=== PATIENT | male | born 1935 | race Asian ===

== ENCOUNTER 2020-10-01 15:13 | Inpatient (IN) | payer MEDICARE, OTHER ==
[~2020-10-01] VITALS: Ht 167.6 cm; Wt 72.6 kg
--- NOTE | 2020-10-01 15:35 | Emergency Room Report ---
History of Present Illness General Chief Complaint: Dyspnea/Respdistress Source: Patient Present Illness HPI Patient is an 85-year-old male who presents for increased cough and difficulty with breathing. Prior history of COPD. Normally takes Combivent. Denies any fever. Intermittently productive cough. Denies any diarrhea. Increased shortness of breath at rest. Prior history of pneumonia. 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 Patient History Past Medical History: see triage record Reviewed Nursing Documentation: PMH: Agreed; PSxH: Agreed Nursing Documentation-PMH Hx COPD: Yes Review of Systems All Other Systems: negative except mentioned in HPI Physical Exam Vital Signs Date Time Temp Pulse Resp B/P (MAP) Pulse Ox O2 Delivery O2 Flow Rate FiO2 10/01/20 15:15 99.9 89 22 125/84 (98) 95 Room Air Sp02 EP Interpretation: reviewed, normal General Appearance: normal inspection, well appearing, no apparent distress, alert, GCS 15 Head: atraumatic ENT: normal ENT inspection, hearing grossly normal, normal voice Neck: normal inspection, full range of motion, supple, no bony tend Respiratory: normal inspection, no retraction, no wheezing, rhonchi Cardiovascular #1: regular rate, rhythm, no edema Gastrointestinal: normal inspection, normal bowel sounds, non tender, soft, no guarding, no hernia Genitourinary: no CVA tenderness Musculoskeletal: normal inspection, back normal, normal range of motion Neurologic: alert, motor strength/tone normal, oriented x3, responsive, speech normal, normal inspection Psychiatric: normal inspection, judgement/insight normal, mood/affect normal Medical Decision Making Diagnostic Impression: Primary Impression: 2019 novel coronavirus detected Additional Impressions: Pneumonia Chronic lung disease ER Course Patient presented for shortness of breath. Differential diagnosis include was not limited to pneumonia, bronchitis, coronavirus infection among others. Because of complexity of patient's case laboratory tests and imaging studies were ordered.Chest x-ray read by radiology showed extensive parenchymal volume loss and pleural thickening on the left with linear opacities most likely represent chronic pleuroparenchymal scarring although acute process is also possible. 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 Patient was started on supplemental oxygen. He was given IV antibiotics. Dr. Marv Yeboah was contacted for inpatient management. Labs Test 10/01/20 16:00 White Blood Count 5.3 K/UL (4.8-10.8) Red Blood Count 4.28 M/UL (4.70-6.10) Hemoglobin 13.4 G/DL (14.2-18.0) Hematocrit 37.8 % (42.0-52.0) Mean Corpuscular Volume 88 FL (80-99) Mean Corpuscular Hemoglobin 31.2 PG (27.0-31.0) Mean Corpuscular Hemoglobin Concent 35.4 G/DL (32.0-36.0) Red Cell Distribution Width 12.9 % (11.6-14.8) Platelet Count 171 K/UL (150-450) Mean Platelet Volume 7.1 FL (6.5-10.1) Neutrophils (%) (Auto) 68.1 % (45.0-75.0) Lymphocytes (%) (Auto) 12.7 % (20.0-45.0) Monocytes (%) (Auto) 17.1 % (1.0-10.0) Eosinophils (%) (Auto) 0.9 % (0.0-3.0) Basophils (%) (Auto) 1.2 % (0.0-2.0) Prothrombin Time 10.7 SEC (9.30-11.50) Prothromb Time International Ratio 1.0 (0.9-1.1) Activated Partial Thromboplast Time 32 SEC (23-33) D-Dimer 0.79 mg/L FEU (0.00-0.49) Sodium Level 136 MMOL/L (136-145) Potassium Level 4.0 MMOL/L (3.5-5.1) Chloride Level 99 MMOL/L (98-107) Carbon Dioxide Level 28 MMOL/L (21-32) Anion Gap 9 mmol/L (5-15) Blood Urea Nitrogen 29 mg/dL (7-18) Creatinine 1.3 MG/DL (0.55-1.30) Estimat Glomerular Filtration Rate 52.7 mL/min (>60) Glucose Level 122 MG/DL (74-106) Lactic Acid Level 1.00 mmol/L (0.4-2.0) Calcium Level 8.7 MG/DL (8.5-10.1) Ferritin 265 NG/ML (8-388) Total Bilirubin 0.9 MG/DL (0.2-1.0) Aspartate Amino Transf (AST/SGOT) 32 U/L (15-37) Alanine Aminotransferase (ALT/SGPT) 23 U/L (12-78) Alkaline Phosphatase 98 U/L (46-116) Lactate Dehydrogenase 210 U/L (81-234) Total Creatine Kinase 91 U/L (26-308) Creatine Kinase MB 0.7 NG/ML (0.0-3.6) Creatine Kinase MB Relative Index 0.7 Troponin I 0.017 ng/mL (0.000-0.056) C-Reactive Protein, Quantitative 2.3 mg/dL (0.00-0.90) Total Protein 8.2 G/DL (6.4-8.2) Albumin 3.2 G/DL (3.4-5.0) Globulin 5.0 g/dL Albumin/Globulin Ratio 0.6 (1.0-2.7) Lipase 387 U/L (73-393) EKG Diagnostic Results Rate: tachycardiac Rhythm: NSR ST Segments: no acute changes Last Vital Signs Date Time Temp Pulse Resp B/P (MAP) Pulse Ox O2 Delivery O2 Flow Rate FiO2 10/01/20 15:15 99.9 89 22 125/84 (98) 95 Room Air Status: improved Disposition: ADMITTED INPATIENT Condition: Stable Fabián Pickett MD Oct 01, 2020 15:35
[2020-10-01] MEDS ORDERED: Aspirin Baby 81mg ORAL ONE (15:45)
[2020-10-01] MEDS ORDERED: dexAMETHasone 10mg/ml Inj IV ONE (15:45)
--- NOTE | 2020-10-01 16:00 | NUR ---
ED Nurse Note:pt. came from home with c/o chest pain and SOB, VSS, ambulatory, blood and cultures covid swab sent to labs
[2020-10-01] MEDS ORDERED: cefTRIAXone 1 GM in NS 55 ML IVPB ONE (16:15)
[2020-10-01] MEDS ORDERED: Azithromycin 500 MG in NS 275 ML IV ONE (16:15)
--- NOTE | 2020-10-01 16:28 | Diagnostic Imaging Report ---
Indication: Shortness of breath Technique: One view of the chest Comparison: none Findings: There is extensive volume loss of the left lung, with retraction of the mediastinum to the left. There is considerable pleural thickening and within the residual aerated lung considerable large reticular opacities. There is also evidence of volume loss in the right lung apex with right apical pleural thickening and upward retraction of the pulmonary hilum. There is some lateral basilar pleural thickening on the right. The aerated right lung demonstrates mild interstitial prominence, is otherwise clear. Impression: Extensive parenchymal volume loss and pleural thickening on the left with linear opacities. Findings most likely represent extensive chronic pleural-parenchymal scarring, although superimposed acute process is also possible. Similar chronic appearing changes in the right upper lobe. Right lower lobe interstitial disease is probably chronic in nature as is right lateral basilar pleural thickening
[2020-10-01 16:29] LABS: BASOPHILS % (AUTO) 1.2 % (0.0-2.0); EOSINOPHILS % (AUTO) 0.9 % (0.0-3.0); HEMATOCRIT 37.8 % (42.0-52.0); HEMOGLOBIN 13.4 G/DL (14.2-18.0); LYMPHOCYTES % (AUTO) 12.7 % (20.0-45.0); MEAN CORPUSCULAR VOLUME 88 FL (80-99); MONOCYTES % (AUTO) 17.1 % (1.0-10.0); NEUTROPHILS % (AUTO) 68.1 % (45.0-75.0); PLATELET COUNT 171 K/UL (150-450); RED BLOOD COUNT 4.28 M/UL (4.70-6.10); RED CELL DISTRIBUTION WIDTH 12.9 % (11.6-14.8); WHITE BLOOD COUNT 5.3 K/UL (4.8-10.8)
[2020-10-01 16:48] VITALS: BP 125/84
[2020-10-01 17:07] LABS: CALCIUM 8.7 MG/DL (8.5-10.1); CREATININE 1.3 MG/DL (0.55-1.30)
[2020-10-01] MEDS ORDERED: METOPROLOL TART25 MG ORAL (17:12)
[2020-10-01] MEDS ORDERED: TIMOLOL MALEATE5 MG PO (17:12)
[2020-10-01] MEDS ORDERED: POTASSIUM CHLO20 ME1 ORAL (17:12)
[2020-10-01] MEDS ORDERED: SYNTHROID137 MCG ORAL (17:12)
[2020-10-01] MEDS ORDERED: MECLIZINE HCL12.5 MG ORAL (17:12)
--- NOTE | 2020-10-01 17:15 | NUR ---
ED Nurse Note: pt was transferred into bed 8, pt was placed on bed and gown; hooked to quality assurance monitor final. hand off received from christiane valero for plan of care. Pt is AOx4, calm and cooperative to care, speaks in full sentences, ambulatory with a steady gait but noted with weakness and cough; uses accessory muscle, satting at 100% on 2LPM via NC.
[2020-10-01 17:22] LABS: ALBUMIN 3.2 G/DL (3.4-5.0); ALBUMIN/GLOBULIN RATIO 0.6 (1.0-2.7); BILIRUBIN,TOTAL 0.9 MG/DL (0.2-1.0); CKMB 0.7 NG/ML (0.0-3.6)
--- NOTE | 2020-10-01 18:23 | NUR ---
ED Nurse Note: XAVIER TALAMANTES-DAUGHTER
[2020-10-01 18:32] LABS: APPEARANCE,URINE CLEAR; BILIRUBIN, URINE NEGATIVE (NEGATIVE); GLUCOSE, URINE (UA) NEGATIVE (NEGATIVE); KETONES,URINE NEGATIVE (NEGATIVE); LEUKOCYTE ESTERASE ,URINE 1+ (NEGATIVE); NITRITE,URINE NEGATIVE (NEGATIVE); PH,URINE 6 (4.5-8.0); PROTEIN,URINE 2+ (NEGATIVE); UROBILINOGEN,URINE NORMAL MG/DL (0.0-1.0)
[2020-10-01 18:54] LABS: COLOR,URINE YELLOW
--- NOTE | 2020-10-01 19:09 | NUR ---
ED Nurse Note: Hand off given to Mian Mazariegos RN
[2020-10-01 19:30] VITALS: BP 113/83
--- NOTE | 2020-10-01 19:30 | NUR ---
ED Nurse Note: received patient from mukul moctezuma rn. patient resting in bed with no acute distress. vitals stable to baseline. discussed plan of care with patient; aware of pending admission.
--- NOTE | 2020-10-01 19:53 | History & Physical ---
History and Physical History & Physicial 85-year-old male who presents for increased cough and difficulty with breathing. known COPD. Denies any fever. + productive cough. + shortness of breath. Prior history of pneumonia COVID+ PMH COPD glaucoma hypertension hypothryoid MEDS/ALLERGIES reviewed and reconciled SOCIAL HISTORY Retired; prior smoker PHYSICAL deferred due to COVID Laboratory Tests 10/01/20 16:00: White Blood Count 5.3, Red Blood Count 4.28L, Hemoglobin 13.4L, Hematocrit 37.8L , Mean Corpuscular Volume 88, Mean Corpuscular Hemoglobin 31.2H, Mean Corpuscular Hemoglobin Concent 35.4, Red Cell Distribution Width 12.9, Platelet Count 171, Mean Platelet Volume 7.1, Neutrophils (%) (Auto) 68.1, Lymphocytes (%) (Auto) 12.7L, Monocytes (%) (Auto) 17.1H, Eosinophils (%) (Auto) 0.9, Basophils (%) (Auto) 1.2, Prothrombin Time 10.7, Prothromb Time International Ratio 1.0, Activated Partial Thromboplast Time 32, D-Dimer 0.79H, Sodium Level 136, Potassium Level 4.0, Chloride Level 99, Carbon Dioxide Level 28, Anion Gap 9, Blood Urea Nitrogen 29H, Creatinine 1.3, Estimat Glomerular Filtration Rate 52.7, Glucose Level 122H, Lactic Acid Level 1.00, Calcium Level 8.7, Ferritin 265, Total Bilirubin 0.9, Aspartate Amino Transf (AST/SGOT) 32, Alanine Aminotransferase (ALT/SGPT) 23, Alkaline Phosphatase 98, Lactate Dehydrogenase 210, Total Creatine Kinase 91, Creatine Kinase MB 0.7, Creatine Kinase MB Relative Index 0.7, Troponin I 0.017, C-Reactive Protein, Quantitative 2.3H, Pro-B-Type Natriuretic Peptide [Pending], Total Protein 8.2, Albumin 3.2L, Globulin 5.0, Albumin/Globulin Ratio 0.6L, Lipase 387 10/01/20 17:00: Urine Color Yellow, Urine Appearance Clear, Urine pH 6, Urine Specific [place] 1.010, Urine Protein 2+H, Urine Glucose (UA) Negative, Urine Ketones Negative, Urine Blood 1+H, Urine Nitrite Negative, Urine Bilirubin Negative, Urine Urobilinogen Normal, Urine Leukocyte Esterase 1+H, Urine RBC [Pending], Urine WBC [Pending], Urine Squamous Epithelial Cells [Pending], Urine Bacteria [Pending] IMPRESSION chronic lung changes COVID pneumonia COPD hypoxemia hypothyroid hypertension PLAN respiratory care ID to see oxygen respiratory treatment DVT prophylaxis home meds monitor for intubation impression, plan, and exam edited and reviewed in detail care discussed with Marv Holguin MD Oct 01, 2020 19:53
[2020-10-01 22:00] VITALS: BP 108/73
[2020-10-02] VITALS: BP 120/77
[2020-10-02 04:00] VITALS: BP 126/80
--- NOTE | 2020-10-02 04:00 | NUR ---
ED Nurse Note: am care provided. patient ao4 with no acute distress. vitals stable to baseline. am labs drawn; sent down to lab.
[2020-10-02 05:38] LABS: HEMATOCRIT 35.4 % (42.0-52.0); HEMOGLOBIN 12.5 G/DL (14.2-18.0); MEAN CORPUSCULAR VOLUME 90 FL (80-99); PLATELET COUNT 143 K/UL (150-450); RED BLOOD COUNT 3.94 M/UL (4.70-6.10); RED CELL DISTRIBUTION WIDTH 12.3 % (11.6-14.8)
[2020-10-02 05:49] LABS: WHITE BLOOD COUNT 1.3 K/UL (4.8-10.8)
[2020-10-02 06:02] VITALS: BP 122/75
[2020-10-02 06:05] LABS: ANION GAP 4 mmol/L (5-15); BLOOD UREA NITROGEN 22 mg/dL (7-18); CALCIUM 8.2 MG/DL (8.5-10.1); CARBON DIOXIDE 30 MMOL/L (21-32); CHLORIDE 103 MMOL/L (98-107); POTASSIUM 4.7 MMOL/L (3.5-5.1); SODIUM 137 MMOL/L (136-145)
--- NOTE | 2020-10-02 07:28 | NUR ---
ED Nurse Note: Report received from Mina Mazariegos RN. Pt is resting in bed with eyes closed. No signs of distress or pain noted. Respirations even and unlabored on 2 L NC. Vitals stable as documented. A+Ox4.
--- NOTE | 2020-10-02 07:34 | NUR ---
ED Nurse Note: report given to JATINDER gonzalez on 4E
--- NOTE | 2020-10-02 08:00 | NUR ---
ED Nurse Note: pt transferred safely to 4E with all belongings.
--- NOTE | 2020-10-02 08:00 | NUR ---
NURSE NOTES: Patient arrived on unit. Stable. Denies pain. SOB noted, patient is on 2L oxygen via nc. Patient oriented to room, call light and unit. Patient instructed to use call light for assistance, verbalized understanding. Patient is in bed in locked and lowest position with call light within reach. All safety measures provided. Will continue to monitor.
[2020-10-02] MEDS: dexAMETHasone 10mg/ml Inj IV SCH (08:28)
[2020-10-02] MEDS ORDERED: Enoxaparin 60mg Inj SUBQ SCH (09:00)
[2020-10-02] MEDS: Enoxaparin 40mg Inj SUBQ SCH (09:00)
--- NOTE | 2020-10-02 09:24 | General Progress Note ---
Subjective ROS Limited/Unobtainable: No Constitutional: Reports: malaise, weakness HEENT: Reports: no symptoms Cardiovascular: Reports: no symptoms Respiratory: Reports: cough, shortness of breath Gastrointestinal/Abdominal: Reports: no symptoms Genitourinary: Reports: no symptoms Neurologic/Psychiatric: Reports: no symptoms Endocrine: Reports: no symptoms Hematologic/Lymphatic: Reports: no symptoms Allergies: Coded Allergies: No Known Allergies (Unverified , 10/01/20) All Systems: reviewed and negative except above Subjective 85 uo male. poor historian. present with 1 week sob. +cough. +fevers. Covid postive in er. +chronic changes on xray. on low flow o2. PMH: Htn chf copd PSHx: none Meds: reviewed All: nkda FHx: none Shx: prior smoker Objective Last 24 Hour Vital Signs Date Time Temp Pulse Resp B/P (MAP) Pulse Ox O2 Delivery O2 Flow Rate FiO2 10/02/20 06:02 99.9 100 23 122/75 98 Room Air 10/02/20 04:00 99.9 100 23 126/80 98 Room Air 10/02/20 00:00 99.9 100 24 120/77 100 Room Air 10/01/20 22:00 99.9 98 23 108/73 100 Room Air 10/01/20 19:30 99.9 70 20 113/83 100 Room Air 10/01/20 16:48 89 22 Room Air 10/01/20 16:48 99.9 88 22 125/84 95 Room Air 10/01/20 15:15 99.9 89 22 125/84 (98) 95 Room Air Intake and Output 10/01/20 10/02/20 19:00 07:00 Intake Total 120 ml Balance 120 ml Intake Oral 120 ml Laboratory Tests 10/01/20 16:00: White Blood Count 5.3, Red Blood Count 4.28L, Hemoglobin 13.4L, Hematocrit 37.8L , Mean Corpuscular Volume 88, Mean Corpuscular Hemoglobin 31.2H, Mean Corpuscular Hemoglobin Concent 35.4, Red Cell Distribution Width 12.9, Platelet Count 171, Mean Platelet Volume 7.1, Neutrophils (%) (Auto) 68.1, Lymphocytes (%) (Auto) 12.7L, Monocytes (%) (Auto) 17.1H, Eosinophils (%) (Auto) 0.9, Basophils (%) (Auto) 1.2, Prothrombin Time 10.7, Prothromb Time International Ratio 1.0, Activated Partial Thromboplast Time 32, D-Dimer 0.79H, Sodium Level 136, Potassium Level 4.0, Chloride Level 99, Carbon Dioxide Level 28, Anion Gap 9, Blood Urea Nitrogen 29H, Creatinine 1.3, Estimat Glomerular Filtration Rate 52.7, Glucose Level 122H, Lactic Acid Level 1.00, Calcium Level 8.7, Ferritin 265, Total Bilirubin 0.9, Aspartate Amino Transf (AST/SGOT) 32, Alanine Aminotransferase (ALT/SGPT) 23, Alkaline Phosphatase 98, Lactate Dehydrogenase 210, Total Creatine Kinase 91, Creatine Kinase MB 0.7, Creatine Kinase MB Relative Index 0.7, Troponin I 0.017, C-Reactive Protein, Quantitative 2.3H, Pro-B-Type Natriuretic Peptide 5537H, Total Protein 8.2, Albumin 3.2L, Globulin 5.0, Albumin/Globulin Ratio 0.6L, Lipase 387 10/01/20 17:00: Urine Color Yellow, Urine Appearance Clear, Urine pH 6, Urine Specific [place] 1.010, Urine Protein 2+H, Urine Glucose (UA) Negative, Urine Ketones Negative, Urine Blood 1+H, Urine Nitrite Negative, Urine Bilirubin Negative, Urine Urobilinogen Normal, Urine Leukocyte Esterase 1+H, Urine RBC 2-4H, Urine WBC 5- 10H, Urine Squamous Epithelial Cells None, Urine Bacteria Few 10/02/20 05:00: White Blood Count 1.3#*L, Red Blood Count 3.94L, Hemoglobin 12.5L, Hematocrit 35.4L, Mean Corpuscular Volume 90, Mean Corpuscular Hemoglobin 31.7H, Mean Corpuscular Hemoglobin Concent 35.3, Red Cell Distribution Width 12.3, Platelet Count 143L, Mean Platelet Volume 7.8, Neutrophils (%) (Auto) , Lymphocytes (%) (Auto) , Monocytes (%) (Auto) , Eosinophils (%) (Auto) , Basophils (%) (Auto) , Sodium Level 137, Potassium Level 4.7, Chloride Level 103, Carbon Dioxide Level 30, Anion Gap 4L, Blood Urea Nitrogen 22H, Creatinine 1.0, Estimat Glomerular Filtration Rate > 60, Glucose Level 139H, Calcium Level 8.2L, Differential Total Cells Counted 100, Neutrophils % (Manual) 63, Lymphocytes % (Manual) 23, Monocytes % (Manual) 14H, Eosinophils % (Manual) 0, Basophils % (Manual) 0, Band Neutrophils 0, Platelet Estimate DecreasedL, Platelet Morphology Normal, Red Blood Cell Morphology Normal Height (Feet): 5 Height (Inches): 6.00 Weight (Pounds): 160 General Appearance: WD/WN, alert, confused EENT: normal ENT inspection Neck: normal alignment Cardiovascular: normal peripheral pulses, normal rate, regular rhythm Respiratory/Chest: chest wall non-tender, lungs clear, normal breath sounds, no respiratory distress Abdomen: normal bowel sounds, non tender, soft, no organomegaly, no mass Edema: no edema noted Leg (L), no edema noted Leg (R), no edema noted Pedal (L), no edema noted Pedal (R) 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
[2020-10-02] MEDS ORDERED: FINASTERIDE5 MG ORAL (10:08)
[2020-10-02] MEDS ORDERED: FLOMAX0.4 MG ORAL (10:08)
[2020-10-02] MEDS ORDERED: FUROSEMIDE40 MG ORAL (10:08)
[2020-10-02] MEDS ORDERED: BENAZEPRIL HCL40 MG ORAL (10:43)
[2020-10-02] MEDS ORDERED: COMBIVENT RESPIM4 GM IH (10:44)
[2020-10-02 12:00] VITALS: BP 150/91
--- NOTE | 2020-10-02 12:34 | Pulmonology Progress Note ---
Subjective ROS Limited/Unobtainable: No Allergies: Coded Allergies: No Known Allergies (Unverified , 10/01/20) All Systems: reviewed and negative except above Subjective care noted confused on oxygen no distress Objective Last 24 Hour Vital Signs Date Time Temp Pulse Resp B/P (MAP) Pulse Ox O2 Delivery O2 Flow Rate FiO2 10/02/20 09:00 Nasal Cannula 2.0 10/02/20 08:17 Nasal Cannula 2.0 10/02/20 08:00 99.6 92 20 129/82 99 Nasal Cannula 1.0 10/02/20 06:02 99.9 100 23 122/75 98 Room Air 10/02/20 04:00 99.9 100 23 126/80 98 Room Air 10/02/20 00:00 99.9 100 24 120/77 100 Room Air 10/01/20 22:00 99.9 98 23 108/73 100 Room Air 10/01/20 19:30 99.9 70 20 113/83 100 Room Air 10/01/20 16:48 89 22 Room Air 10/01/20 16:48 99.9 88 22 125/84 95 Room Air 10/01/20 15:15 99.9 89 22 125/84 (98) 95 Room Air Intake and Output 10/01/20 10/02/20 19:00 07:00 Intake Total 120 ml Balance 120 ml Intake Oral 120 ml Objective deferred due to COVID Microbiology Date/Time Source Procedure Growth Status 10/01/20 16:00 Nasopharynx SARS-CoV-2 RdRp Gene Assay - Final Complete Laboratory Tests 10/01/20 16:00: White Blood Count 5.3, Red Blood Count 4.28L, Hemoglobin 13.4L, Hematocrit 37.8L , Mean Corpuscular Volume 88, Mean Corpuscular Hemoglobin 31.2H, Mean Corpuscular Hemoglobin Concent 35.4, Red Cell Distribution Width 12.9, Platelet Count 171, Mean Platelet Volume 7.1, Neutrophils (%) (Auto) 68.1, Lymphocytes (%) (Auto) 12.7L, Monocytes (%) (Auto) 17.1H, Eosinophils (%) (Auto) 0.9, Basophils (%) (Auto) 1.2, Prothrombin Time 10.7, Prothromb Time International Ratio 1.0, Activated Partial Thromboplast Time 32, D-Dimer 0.79H, Sodium Level 136, Potassium Level 4.0, Chloride Level 99, Carbon Dioxide Level 28, Anion Gap 9, Blood Urea Nitrogen 29H, Creatinine 1.3, Estimat Glomerular Filtration Rate 52.7, Glucose Level 122H, Lactic Acid Level 1.00, Calcium Level 8.7, Ferritin 265, Total Bilirubin 0.9, Aspartate Amino Transf (AST/SGOT) 32, Alanine Aminotransferase (ALT/SGPT) 23, Alkaline Phosphatase 98, Lactate Dehydrogenase 210, Total Creatine Kinase 91, Creatine Kinase MB 0.7, Creatine Kinase MB Relative Index 0.7, Troponin I 0.017, C-Reactive Protein, Quantitative 2.3H, Pro-B-Type Natriuretic Peptide 5537H, Total Protein 8.2, Albumin 3.2L, Globulin 5.0, Albumin/Globulin Ratio 0.6L, Lipase 387 10/01/20 17:00: Urine Color Yellow, Urine Appearance Clear, Urine pH 6, Urine Specific [place] 1.010, Urine Protein 2+H, Urine Glucose (UA) Negative, Urine Ketones Negative, Urine Blood 1+H, Urine Nitrite Negative, Urine Bilirubin Negative, Urine Urobilinogen Normal, Urine Leukocyte Esterase 1+H, Urine RBC 2-4H, Urine WBC 5- 10H, Urine Squamous Epithelial Cells None, Urine Bacteria Few 10/02/20 05:00: White Blood Count 1.3#*L, Red Blood Count 3.94L, Hemoglobin 12.5L, Hematocrit 35.4L, Mean Corpuscular Volume 90, Mean Corpuscular Hemoglobin 31.7H, Mean Corpuscular Hemoglobin Concent 35.3, Red Cell Distribution Width 12.3, Platelet Count 143L, Mean Platelet Volume 7.8, Neutrophils (%) (Auto) , Lymphocytes (%) (Auto) , Monocytes (%) (Auto) , Eosinophils (%) (Auto) , Basophils (%) (Auto) , Sodium Level 137, Potassium Level 4.7, Chloride Level 103, Carbon Dioxide Level 30, Anion Gap 4L, Blood Urea Nitrogen 22H, Creatinine 1.0, Estimat Glomerular Filtration Rate > 60, Glucose Level 139H, Calcium Level 8.2L, Differential Total Cells Counted 100, Neutrophils % (Manual) 63, Lymphocytes % (Manual) 23, Monocytes % (Manual) 14H, Eosinophils % (Manual) 0, Basophils % (Manual) 0, Band Neutrophils 0, Platelet Estimate DecreasedL, Platelet Morphology Normal, Red Blood Cell Morphology Normal Current Medications Medications (Trade) Dose Ordered Sig/Nikia Route PRN Reason Start Time Stop Time Status Last Admin Dose Admin Acetaminophen (Tylenol) 650 mg Q4H PRN ORAL fever 10/01/20 20:00 10/31/20 19:59 Albuterol/ Ipratropium (Combivent Respimat) 1 puff Q6H PRN INH Shortness of Breath 10/02/20 12:30 11/01/20 12:29 Benazepril HCl (Lotensin) 40 mg DAILY ORAL 10/03/20 09:00 11/02/20 08:59 Dexamethasone Sodium Phosphate (Decadron 10mg/ ml Inj) 6 mg DAILY IV 10/02/20 09:00 10/10/20 09:01 10/02/20 08:28 Enoxaparin Sodium (Lovenox) 40 mg DAILY SUBQ 10/02/20 09:00 12/31/20 08:59 Finasteride (Proscar) 5 mg DAILY ORAL 10/03/20 09:00 01/01/21 08:59 Furosemide (Lasix) 40 mg DAILY ORAL 10/03/20 09:00 11/02/20 08:59 Pantoprazole (Protonix) 40 mg DAILY ORAL 10/02/20 09:00 11/01/20 08:59 10/02/20 08:28 Sodium Chloride 1,000 ml @ 100 mls/hr Q10H IV 10/01/20 20:00 10/31/20 19:59 10/02/20 05:49 Assessment/Plan Assessment/Plan IMPRESSION chronic lung changes COVID pneumonia COPD hypoxemia hypothyroid hypertension PLAN respiratory care ID follow up oxygen respiratory treatment DVT prophylaxis home meds PT monitor imaging and consider CT impression, plan, and exam edited and reviewed in detail care discussed with Marv Holguin MD Oct 02, 2020 12:34
[2020-10-02] MEDS: Azithromycin 250mg tab ORAL SCH (13:37)
[2020-10-02] MEDS ORDERED: cefTRIAXone 1 GM in NS 55 ML IVPB SCH (14:00)
[2020-10-02 16:00] VITALS: BP 115/73
--- NOTE | 2020-10-02 19:19 | NUR ---
NURSE HAND-OFF: Important Events on Shift:admission Patient Status: stable Diet: reg Pending Orders: n/a Pending Results/Labs:n/a Pending MD notification:n/a Latest Vital Signs: Temperature 96.9 , Pulse 75 , B/P 115 /73 , Respiratory Rate 18 , O2 SAT 93 , Nasal Cannula, O2 Flow Rate 14.0 . Vital Sign Comment: n/a Latest Meneses Fall Score: 35 Fall Risk: Medium Risk Safety Measures: Call light Within Reach, Bed Alarm , Side Rails Side Rails x2, Bed position Low and Locked. Fall Precautions: Patient Fall Education Report given to Josefa RN.
--- NOTE | 2020-10-02 19:30 | NUR ---
NURSE NOTES: RECEIVED PATIENT FROM JATINDER OVALLE. PATIENT IS AWAKE, AAOX4, ON NC 2L, NO ACUTE DISTRESS NOTED. PIV ON LEFT ARM INTACT AND PATENT, RUNNING 1/2 NS AT 100ML/HR. VSS, AFEBRILE. BED IS LOCKED AND LOW, BED ALARMS ACTIVE, SIDE RAILS UPX2 AND CALL LIGHT IS WITHIN REACH. WILL CONTINUE TO MONITOR.
--- NOTE | 2020-10-02 19:45 | Consultation ---
DATE OF CONSULTATION: 10/02/2020 INFECTIOUS DISEASE CONSULTATION This consult is for coverage of Dr. Mitchell. CONSULTING PHYSICIAN: Gaetano Marina MD PRIMARY ATTENDING: Marv Yeboah MD REASON FOR CONSULTATION: COVID-19 disease. HISTORY OF PRESENT ILLNESS: This is an 85-year-old male admitted yesterday from home complaining of cough and shortness of breath. Patient has a history of COPD, was found to have positive test for COVID-19. PAST MEDICAL HISTORY: Hypothyroidism, hypertension, COPD. ALLERGIES: No known drug allergies. MEDICATIONS: Lasix, Proscar, benazepril, Combivent inhaler, albuterol-ipratropium inhaler, Lovenox, Protonix, dexamethasone. Got Zithromax and Rocephin in the ER. SOCIAL HISTORY: Has history of smoking. . REVIEW OF SYSTEMS: As history of present illness. Denies fever, chills. Has productive cough and shortness of breath. Seems to be hard of hearing. PHYSICAL EXAMINATION: VITAL SIGNS: Temperature 99.6, pulse 92, blood pressure 129/82. GENERAL APPEARANCE: Seems to have normal weight. HEAD AND NECK: [place] conjunctivae. HEART: Normal rate. LUNGS: Getting oxygen by nasal cannula 2 L. Seems clear. ABDOMEN: Soft, nontender. EXTREMITIES: No edema. NEUROLOGIC: He is awake, alert, responsive. LABORATORY AND DIAGNOSTIC DATA: Sodium 137, potassium 4.7, chloride 103, bicarb 30, BUN 22, creatinine 1, glucose 139. WBC 1.3, hemoglobin within normal limit, hematocrit 35.4, platelets are 143. COVID test was positive. Chest x-ray showed extensive volume loss, likely extensive scarring. IMPRESSION: COVID-19 disease. Patient is mildly hypoxemic. Has also COPD and evidence of lung scarring. Has leukopenia and lymphopenia, hypertension, hypothyroidism. RECOMMENDATION: Continue dexamethasone. Continue ceftriaxone and Zithromax. If patient's condition becomes worse, we will start on remdesivir. At the end of my exam, I thank Dr. Yeboah for involving me in the care of this patient. Gaetano Marina M.D. DR: ELTON JOB#: [id number] CC: MARQUES
[2020-10-02 20:00] VITALS: BP 135/73
[2020-10-03 04:00] VITALS: BP 114/68
--- NOTE | 2020-10-03 06:59 | NUR ---
NURSE HAND-OFF: Important Events on Shift: No acute events. Stable Patient Status: Stable Diet: Regular Pending Orders: N/A Pending Results/Labs:N/ Pending MD notification:N/A Latest Vital Signs: Temperature 96.9 , Pulse 91 , B/P 114 /68 , Respiratory Rate 20 , O2 SAT 95 , Nasal Cannula, O2 Flow Rate 2.0 . Vital Sign Comment: Stable Latest Meneses Fall Score: 35 Fall Risk: Medium Risk Safety Measures: Call light Within Reach, Bed Alarm , Side Rails Side Rails x2, Bed position Low and Locked. Fall Precautions: Patient Fall Education
--- NOTE | 2020-10-03 07:29 | NUR ---
HAND-OFF: Report given to Radhika Garcia RN.
--- NOTE | 2020-10-03 07:45 | NUR ---
NURSE NOTES: Pt awake in bed, alert and oriented. On NC 2L, breathing even and unlabored, no c/o SOB, afebrile, denied any pain at this time. IV on left FA intact and patent running IVF as ordered. Pt in low position and locked. Call light within reach. Will continue monitor.
[2020-10-03 08:00] VITALS: BP 113/78
[2020-10-03] MEDS: Furosemide 40mg tab ORAL SCH (08:30)
[2020-10-03] MEDS: Azithromycin 250mg tab ORAL SCH (08:30)
[2020-10-03] MEDS: dexAMETHasone 10mg/ml Inj IV SCH (08:30)
[2020-10-03] MEDS: Enoxaparin 40mg Inj SUBQ SCH (08:32)
--- NOTE | 2020-10-03 11:19 | Pulmonology Progress Note ---
Subjective ROS Limited/Unobtainable: No Allergies: Coded Allergies: No Known Allergies (Unverified , 10/01/20) All Systems: reviewed and negative except above Subjective care noted confused on oxygen no distress as prior Objective Last 24 Hour Vital Signs Date Time Temp Pulse Resp B/P (MAP) Pulse Ox O2 Delivery O2 Flow Rate FiO2 10/03/20 09:00 Nasal Cannula 2.0 10/03/20 08:29 113/78 10/03/20 08:00 97.7 77 19 113/78 (90) 96 10/03/20 04:00 96.9 91 20 114/68 (83) 95 10/02/20 21:00 Nasal Cannula 2.0 10/02/20 20:00 97.5 82 21 135/73 (93) 98 10/02/20 16:30 93 Venturi Mask 14.0 55 10/02/20 16:00 96.9 75 18 115/73 (87) 96 10/02/20 12:00 98.0 90 18 150/91 (110) 100 Intake and Output 10/02/20 10/03/20 19:00 07:00 Intake Total 100 ml 700 ml Balance 100 ml 700 ml IV Total 100 ml 700 ml Objective deferred due to COVID Microbiology Date/Time Source Procedure Growth Status 10/01/20 16:00 Nasopharynx SARS-CoV-2 RdRp Gene Assay - Final Complete Current Medications Medications (Trade) Dose Ordered Sig/Nikia Route PRN Reason Start Time Stop Time Status Last Admin Dose Admin Acetaminophen (Tylenol) 650 mg Q4H PRN ORAL fever 10/01/20 20:00 10/31/20 19:59 Albuterol/ Ipratropium (Combivent Respimat) 1 puff Q6H PRN INH Shortness of Breath 10/02/20 12:30 11/01/20 12:29 Azithromycin (Zithromax) 250 mg DAILY ORAL 10/02/20 14:00 10/09/20 13:59 10/03/20 08:30 Benazepril HCl (Lotensin) 40 mg DAILY ORAL 10/03/20 09:00 11/02/20 08:59 10/03/20 08:29 Ceftriaxone Sodium 1 gm/ Sodium Chloride 55 ml @ 110 mls/hr Q24H IVPB 10/02/20 14:00 10/09/20 13:59 10/02/20 13:38 Dexamethasone Sodium Phosphate (Decadron 10mg/ ml Inj) 6 mg DAILY IV 10/02/20 09:00 10/10/20 09:01 10/03/20 08:30 Enoxaparin Sodium (Lovenox) 40 mg DAILY SUBQ 10/02/20 09:00 12/31/20 08:59 Finasteride (Proscar) 5 mg DAILY ORAL 10/03/20 09:00 01/01/21 08:59 10/03/20 08:30 Furosemide (Lasix) 40 mg DAILY ORAL 10/03/20 09:00 11/02/20 08:59 10/03/20 08:30 Pantoprazole (Protonix) 40 mg DAILY ORAL 10/02/20 09:00 11/01/20 08:59 10/03/20 08:29 Sodium Chloride 1,000 ml @ 100 mls/hr Q10H IV 10/01/20 20:00 10/31/20 19:59 10/03/20 02:40 Assessment/Plan Assessment/Plan IMPRESSION chronic lung changes COVID pneumonia COPD hypoxemia hypothyroid hypertension PLAN respiratory care ID follow up oxygen respiratory treatment DVT prophylaxis home meds PT monitor imaging and consider CT impression, plan, and exam edited and reviewed in detail care discussed with Marv Holguin MD Oct 03, 2020 11:19
--- NOTE | 2020-10-03 11:44 | Infectious Diseases Prog Note ---
Assessment/Plan Assessment/Plan antibiotics : ceftriaxone, azithromycin A 1. COVID 19 pneumonia on 2 liters O2, 96 % saturation 2. hypertension 3. COPD 4. hypothyroidism P 1. continue decadron day 2 2. d/c ceftriaxone, azithromycin 3. ivermectin 1 dose 4. continue isolation Subjective ROS Limited/Unobtainable: Yes Allergies: Coded Allergies: No Known Allergies (Unverified , 10/01/20) Objective Last 24 Hour Vital Signs Date Time Temp Pulse Resp B/P (MAP) Pulse Ox O2 Delivery O2 Flow Rate FiO2 10/03/20 09:00 Nasal Cannula 2.0 10/03/20 08:29 113/78 10/03/20 08:00 97.7 77 19 113/78 (90) 96 10/03/20 04:00 96.9 91 20 114/68 (83) 95 10/02/20 21:00 Nasal Cannula 2.0 10/02/20 20:00 97.5 82 21 135/73 (93) 98 10/02/20 16:30 93 Venturi Mask 14.0 55 10/02/20 16:00 96.9 75 18 115/73 (87) 96 10/02/20 12:00 98.0 90 18 150/91 (110) 100 Height (Feet): 5 Height (Inches): 6.00 Weight (Pounds): 160 Microbiology Date/Time Source Procedure Growth Status 10/01/20 16:00 Nasopharynx SARS-CoV-2 RdRp Gene Assay - Final Complete Current Medications Medications (Trade) Dose Ordered Sig/Nikia Route PRN Reason Start Time Stop Time Status Last Admin Dose Admin Acetaminophen (Tylenol) 650 mg Q4H PRN ORAL fever 10/01/20 20:00 10/31/20 19:59 Albuterol/ Ipratropium (Combivent Respimat) 1 puff Q6H PRN INH Shortness of Breath 10/02/20 12:30 11/01/20 12:29 Azithromycin (Zithromax) 250 mg DAILY ORAL 10/02/20 14:00 10/09/20 13:59 10/03/20 08:30 Benazepril HCl (Lotensin) 40 mg DAILY ORAL 10/03/20 09:00 11/02/20 08:59 10/03/20 08:29 Ceftriaxone Sodium 1 gm/ Sodium Chloride 55 ml @ 110 mls/hr Q24H IVPB 10/02/20 14:00 10/09/20 13:59 10/02/20 13:38 Dexamethasone Sodium Phosphate (Decadron 10mg/ ml Inj) 6 mg DAILY IV 10/02/20 09:00 10/10/20 09:01 10/03/20 08:30 Enoxaparin Sodium (Lovenox) 40 mg DAILY SUBQ 10/02/20 09:00 12/31/20 08:59 Finasteride (Proscar) 5 mg DAILY ORAL 10/03/20 09:00 01/01/21 08:59 10/03/20 08:30 Furosemide (Lasix) 40 mg DAILY ORAL 10/03/20 09:00 11/02/20 08:59 10/03/20 08:30 Pantoprazole (Protonix) 40 mg DAILY ORAL 10/02/20 09:00 11/01/20 08:59 10/03/20 08:29 Sodium Chloride 1,000 ml @ 100 mls/hr Q10H IV 10/01/20 20:00 10/31/20 19:59 10/03/20 02:40 Nuzhat Mitchell MD Oct 03, 2020 11:44
[2020-10-03 12:00] VITALS: BP 128/63
[2020-10-03 16:00] VITALS: BP 121/70
--- NOTE | 2020-10-03 17:23 | NUR ---
CASE MANAGEMENT:INITIAL REVIEW 10/02/20 85 YR OLD MALE FROM HOME CC;DYSPNEA. RESPIRATORY DISTRESS. SI;COPD. COVID POSITIVE. 99.9 98 23 125/84 95% ON RA BUN 29 BG 122 CRP 2.3 BNP 5537 ALB 3.2 D-DIMER 0.79 UA+ PROTEIN, BLOOD, LEUKOCYTE ESTERASE, RBC, WBC COVID RAPID ~ POSITIVE CXR ~ Extensive parenchymal volume loss and pleural thickening on the left with linear opacities. Findings most likely represent extensive chronic pleural-parenchymal scarring, although superimposed acute process is also possible. Similar chronic appearing changes in the right upper lobe. Right lower lobe interstitial disease is probably chronic in nature as is right lateral basilar pleural thickening IS;DECADRON IV ASA PO ROCEPHIN IV ZITHROMAX IV IVF NS BOLUS ADMITTED TO MED SURG MED SURG STATUS DCP;FROM HOME CASE MANAGEMENT:REVIEW 10/03/20 SI;COVID PNA. COPD. 96.9 91 21 128/63 95% 2L NC IS;IVERMECTIN PO ONCE LASIX OP QD ZITHROMAX PO QD ROCEPHIN IV Q24 PROTONIX PO QD DECADRON IV QD IVF NS @ 100 ML/HR MED SURG STATUS DCP;FROM HOME
--- NOTE | 2020-10-03 17:25 | General Progress Note ---
Subjective ROS Limited/Unobtainable: No Constitutional: Reports: malaise, weakness HEENT: Reports: no symptoms Cardiovascular: Reports: no symptoms Respiratory: Reports: cough, shortness of breath Gastrointestinal/Abdominal: Reports: no symptoms Genitourinary: Reports: no symptoms Neurologic/Psychiatric: Reports: anxiety Endocrine: Reports: no symptoms Hematologic/Lymphatic: Reports: no symptoms Allergies: Coded Allergies: No Known Allergies (Unverified , 10/01/20) All Systems: reviewed and negative except above Subjective no events. no new complaints. stable sob. no fevers. on 2L. Objective Last 24 Hour Vital Signs Date Time Temp Pulse Resp B/P (MAP) Pulse Ox O2 Delivery O2 Flow Rate FiO2 10/03/20 16:00 97.3 76 21 121/70 (87) 96 10/03/20 12:00 97.7 90 21 128/63 (84) 99 10/03/20 09:00 Nasal Cannula 2.0 10/03/20 08:29 113/78 10/03/20 08:00 97.7 77 19 113/78 (90) 96 10/03/20 04:00 96.9 91 20 114/68 (83) 95 10/02/20 21:00 Nasal Cannula 2.0 10/02/20 20:00 97.5 82 21 135/73 (93) 98 Intake and Output 10/02/20 10/03/20 19:00 07:00 Intake Total 100 ml 700 ml Balance 100 ml 700 ml IV Total 100 ml 700 ml Height (Feet): 5 Height (Inches): 6.00 Weight (Pounds): 160 General Appearance: WD/WN, alert Neck: supple Cardiovascular: regular rhythm Respiratory/Chest: lungs clear, normal breath sounds Abdomen: normal bowel sounds, non tender, soft, no organomegaly Edema: no edema noted Pedal (L), no edema noted Pedal (R) 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
--- NOTE | 2020-10-03 19:08 | NUR ---
NURSE HAND-OFF: Important Events on Shift:[No SOB, saturation well on RA] Patient Status: [stable] Diet: [reg] Pending Orders: [] Pending Results/Labs:[] Pending MD notification:[] Latest Vital Signs: Temperature 97.3 , Pulse 76 , B/P 121 /70 , Respiratory Rate 21 , O2 SAT 96 , Nasal Cannula, O2 Flow Rate 2.0 . Vital Sign Comment: [stable] Latest Meneses Fall Score: 35 Fall Risk: Medium Risk Safety Measures: Call light Within Reach, Bed Alarm , Side Rails Side Rails x2, Bed position Low and Locked. Fall Precautions: Patient Fall Education Report given to [Josefa,RN].
[2020-10-03 20:00] VITALS: BP 110/71
[2020-10-04] VITALS: BP 116/68
[2020-10-04 04:00] VITALS: BP 108/71
--- NOTE | 2020-10-04 07:38 | NUR ---
HAND-OFF: Report given to JATINDER Fernandez.
--- NOTE | 2020-10-04 07:55 | NUR ---
NURSE NOTES: Received report from Josefa RN. Rounding done. Pt asleep with NC 2L/min. No SOB noted. Lt FA IV is in placed. Bed in lowest position, call light within reach. Will continue to monitor.
[2020-10-04 08:00] VITALS: BP 100/74
[2020-10-04] MEDS: Enoxaparin 40mg Inj SUBQ SCH (09:00)
[2020-10-04] MEDS: Furosemide 40mg tab ORAL SCH (09:15)
[2020-10-04] MEDS: dexAMETHasone 10mg/ml Inj IV SCH (09:24)
--- NOTE | 2020-10-04 10:18 | General Progress Note ---
Subjective ROS Limited/Unobtainable: No Constitutional: Reports: malaise, weakness HEENT: Reports: no symptoms Cardiovascular: Reports: no symptoms Respiratory: Reports: cough, shortness of breath Gastrointestinal/Abdominal: Reports: no symptoms Genitourinary: Reports: no symptoms Neurologic/Psychiatric: Reports: no symptoms Endocrine: Reports: no symptoms Hematologic/Lymphatic: Reports: no symptoms Allergies: Coded Allergies: No Known Allergies (Unverified , 10/01/20) All Systems: reviewed and negative except above Subjective no events. no new complaints. stable sob. no fevers. on 2L. Objective Last 24 Hour Vital Signs Date Time Temp Pulse Resp B/P (MAP) Pulse Ox O2 Delivery O2 Flow Rate FiO2 10/04/20 09:00 100/74 10/04/20 08:00 97.7 105 20 100/74 (83) 99 10/04/20 04:00 97.5 115 20 108/71 (83) 99 10/04/20 00:00 97.7 83 20 116/68 (84) 94 10/03/20 21:00 Nasal Cannula 2.0 10/03/20 20:30 95 Venturi Mask 14.0 55 10/03/20 20:00 97.7 85 20 110/71 (84) 92 10/03/20 16:00 97.3 76 21 121/70 (87) 96 10/03/20 12:00 97.7 90 21 128/63 (84) 99 Intake and Output 10/03/20 10/04/20 19:00 07:00 Intake Total 720 ml Output Total 300 ml Balance 420 ml Intake Oral 720 ml Output Urine Total 300 ml # Voids 1 Height (Feet): 5 Height (Inches): 6.00 Weight (Pounds): 160 Objective General Appearance: WD/WN, alert Neck: supple Cardiovascular: regular rhythm Respiratory/Chest: lungs clear, normal breath sounds Abdomen: normal bowel sounds, non tender, soft, no organomegaly Edema: no edema noted Pedal (L), no edema noted Pedal (R) 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
[2020-10-04 12:00] VITALS: BP 129/78
--- NOTE | 2020-10-04 12:37 | Infectious Diseases Prog Note ---
Assessment/Plan Assessment/Plan A 1. COVID19 pneumonia 2. Hypertension 3. COPD 4. Hypothyroidism P 1. continue Decadron day 3 2. Got ivermectin 1 dose 3. continue isolation Subjective ROS Limited/Unobtainable: Yes Allergies: Coded Allergies: No Known Allergies (Unverified , 10/01/20) Objective Last 24 Hour Vital Signs Date Time Temp Pulse Resp B/P (MAP) Pulse Ox O2 Delivery O2 Flow Rate FiO2 10/04/20 12:00 97.0 96 20 129/78 (95) 98 10/04/20 09:00 100/74 10/04/20 09:00 Nasal Cannula 2.0 10/04/20 08:00 97.7 105 20 100/74 (83) 99 10/04/20 04:00 97.5 115 20 108/71 (83) 99 10/04/20 00:00 97.7 83 20 116/68 (84) 94 10/03/20 21:00 Nasal Cannula 2.0 10/03/20 20:30 95 Venturi Mask 14.0 55 10/03/20 20:00 97.7 85 20 110/71 (84) 92 10/03/20 16:00 97.3 76 21 121/70 (87) 96 Height (Feet): 5 Height (Inches): 6.00 Weight (Pounds): 160 HEENT: mucous membranes moist Respiratory/Chest: lungs clear, other - oxygen by nasal cannula Cardiovascular: normal rate Abdomen: soft, non tender Extremities: no edema Neurologic/Psychiatric: other - sleeping Musculoskeletal: atrophy Microbiology Date/Time Source Procedure Growth Status 10/01/20 16:00 Nasopharynx SARS-CoV-2 RdRp Gene Assay - Final Complete 10/01/20 16:00 Blood Blood Culture - Preliminary NO GROWTH AFTER 48 HOURS Resulted 10/01/20 15:50 Blood Blood Culture - Preliminary NO GROWTH AFTER 48 HOURS Resulted Current Medications Medications (Trade) Dose Ordered Sig/Nikia Route PRN Reason Start Time Stop Time Status Last Admin Dose Admin Acetaminophen (Tylenol) 650 mg Q4H PRN ORAL fever 10/01/20 20:00 10/31/20 19:59 Albuterol/ Ipratropium (Combivent Respimat) 1 puff Q6H PRN INH Shortness of Breath 10/02/20 12:30 11/01/20 12:29 Benazepril HCl (Lotensin) 40 mg DAILY ORAL 10/03/20 09:00 11/02/20 08:59 10/03/20 08:29 Dexamethasone Sodium Phosphate (Decadron 10mg/ ml Inj) 6 mg DAILY IV 10/02/20 09:00 10/10/20 09:01 10/04/20 09:24 Enoxaparin Sodium (Lovenox) 40 mg DAILY SUBQ 10/02/20 09:00 12/31/20 08:59 Finasteride (Proscar) 5 mg DAILY ORAL 10/03/20 09:00 01/01/21 08:59 10/04/20 09:14 Furosemide (Lasix) 40 mg DAILY ORAL 10/03/20 09:00 11/02/20 08:59 10/04/20 09:15 Pantoprazole (Protonix) 40 mg DAILY ORAL 10/02/20 09:00 11/01/20 08:59 10/04/20 09:14 Sodium Chloride 1,000 ml @ 100 mls/hr Q10H IV 10/01/20 20:00 10/31/20 19:59 10/04/20 09:15 Gaetano Marina MD Oct 04, 2020 12:37
--- NOTE | 2020-10-04 15:35 | Pulmonology Progress Note ---
Subjective ROS Limited/Unobtainable: Yes Allergies: Coded Allergies: No Known Allergies (Unverified , 10/01/20) All Systems: reviewed and negative except above Subjective care noted confused on oxygen no distress as prior and alert Objective Last 24 Hour Vital Signs Date Time Temp Pulse Resp B/P (MAP) Pulse Ox O2 Delivery O2 Flow Rate FiO2 10/04/20 12:00 97.0 96 20 129/78 (95) 98 10/04/20 09:00 100/74 10/04/20 09:00 Nasal Cannula 2.0 10/04/20 08:00 97.7 105 20 100/74 (83) 99 10/04/20 04:00 97.5 115 20 108/71 (83) 99 10/04/20 00:00 97.7 83 20 116/68 (84) 94 10/03/20 21:00 Nasal Cannula 2.0 10/03/20 20:30 95 Venturi Mask 14.0 55 10/03/20 20:00 97.7 85 20 110/71 (84) 92 10/03/20 16:00 97.3 76 21 121/70 (87) 96 Intake and Output 10/03/20 10/04/20 19:00 07:00 Intake Total 720 ml Output Total 300 ml Balance 420 ml Intake Oral 720 ml Output Urine Total 300 ml # Voids 1 Objective deferred due to COVID Microbiology Date/Time Source Procedure Growth Status 10/01/20 16:00 Nasopharynx SARS-CoV-2 RdRp Gene Assay - Final Complete 10/01/20 16:00 Blood Blood Culture - Preliminary NO GROWTH AFTER 48 HOURS Resulted 10/01/20 15:50 Blood Blood Culture - Preliminary NO GROWTH AFTER 48 HOURS Resulted Current Medications Medications (Trade) Dose Ordered Sig/Nikia Route PRN Reason Start Time Stop Time Status Last Admin Dose Admin Acetaminophen (Tylenol) 650 mg Q4H PRN ORAL fever 10/01/20 20:00 10/31/20 19:59 Albuterol/ Ipratropium (Combivent Respimat) 1 puff Q6H PRN INH Shortness of Breath 10/02/20 12:30 11/01/20 12:29 Benazepril HCl (Lotensin) 40 mg DAILY ORAL 10/03/20 09:00 11/02/20 08:59 10/03/20 08:29 Dexamethasone Sodium Phosphate (Decadron 10mg/ ml Inj) 6 mg DAILY IV 10/02/20 09:00 10/10/20 09:01 10/04/20 09:24 Enoxaparin Sodium (Lovenox) 40 mg DAILY SUBQ 10/02/20 09:00 12/31/20 08:59 Finasteride (Proscar) 5 mg DAILY ORAL 10/03/20 09:00 01/01/21 08:59 10/04/20 09:14 Furosemide (Lasix) 40 mg DAILY ORAL 10/03/20 09:00 11/02/20 08:59 10/04/20 09:15 Pantoprazole (Protonix) 40 mg DAILY ORAL 10/02/20 09:00 11/01/20 08:59 10/04/20 09:14 Sodium Chloride 1,000 ml @ 100 mls/hr Q10H IV 10/01/20 20:00 10/31/20 19:59 10/04/20 09:15 Assessment/Plan Assessment/Plan IMPRESSION chronic lung changes COVID pneumonia COPD hypoxemia hypothyroid hypertension PLAN respiratory care ID follow up oxygen respiratory treatment DVT prophylaxis home meds PT monitor imaging and hope to dc impression, plan, and exam edited and reviewed in detail care discussed with Marv Holguin MD Oct 04, 2020 15:35
[2020-10-04 16:00] VITALS: BP 103/57
[2020-10-04] MEDS ORDERED: POTASSIUM CHLO10 MEQ ORAL (17:03)
--- NOTE | 2020-10-04 19:11 | NUR ---
NURSE HAND-OFF: Important Events on Shift: No new event Patient Status: stable Diet: regular Pending Orders: n/a Pending Results/Labs:n/a Pending MD notification:n/a Latest Vital Signs: Temperature 97.7 , Pulse 110 , B/P 103 /57 , Respiratory Rate 20 , O2 SAT 99 , Nasal Cannula, O2 Flow Rate 2.0 . Vital Sign Comment: stable Latest Meneses Fall Score: 35 Fall Risk: Medium Risk Safety Measures: Call light Within Reach, Bed Alarm , Side Rails Side Rails x2, Bed position Low and Locked. Fall Precautions: Patient Fall Education Report given to JATINDER Silva.
--- NOTE | 2020-10-04 19:20 | NUR ---
NURSE NOTES: Pt received from JATINDER Fernandez. Pt. AAOx4, breathing even and unlabored on 2L NC, no indications of respiratory distress, no complaints of pain. IV noted left forearm 22g intact and patent, with 1/2NS at 100cc running. Bed low and locked, side rails x2 up, and call light in reach.
[2020-10-04 20:00] VITALS: BP 110/62
[2020-10-05] VITALS: BP 109/81
[2020-10-05 04:00] VITALS: BP 126/70
--- NOTE | 2020-10-05 07:32 | NUR ---
NURSE HAND-OFF: Important Events on Shift:[Pt. stable, able to void independently] Patient Status: stable Diet: regular Pending Orders: na Pending Results/Labs:na Pending MD notification:na Latest Vital Signs: Temperature 97.0 , Pulse 106 , B/P 126 /70 , Respiratory Rate 18 , O2 SAT 96 , Nasal Cannula, O2 Flow Rate 2.0 . Vital Sign Comment: stable Latest Meneses Fall Score: 35 Fall Risk: Medium Risk Safety Measures: Call light Within Reach, Bed Alarm , Side Rails Side Rails x2, Bed position Low and Locked. Fall Precautions: Patient Fall Education Report given to JATINDER Fernandez.
[2020-10-05 08:00] VITALS: BP 128/65
--- NOTE | 2020-10-05 08:00 | NUR ---
NURSE NOTES: Received report from JATINDER Silva. Rounding done. Pt asleep. Lt FA IV is in placed. Bed in lowest position, call light within reach. Will continue to monitor.
[2020-10-05] MEDS: dexAMETHasone 10mg/ml Inj IV SCH (08:33)
[2020-10-05] MEDS: Furosemide 40mg tab ORAL SCH (08:33)
[2020-10-05] MEDS: Enoxaparin 40mg Inj SUBQ SCH (08:34)
[2020-10-05] MEDS ORDERED: TBO-Filgrastim 300 mcg/0.5ml SQ SCH ×2 (11:00→21:00)
--- NOTE | 2020-10-05 11:16 | Infectious Diseases Prog Note ---
Assessment/Plan Assessment/Plan antibiotics : none A 1. COVID 19 pneumonia on 2 liters O2, 98 % saturation s/p ivermectin 2. hypertension 3. COPD 4. hypothyroidism P 1. continue decadron day 4 2. continue isolation Subjective Constitutional: Denies: fever, chills Respiratory: Reports: shortness of breath; Denies: dry cough Gastrointestinal/Abdominal: Denies: nausea, vomiting, diarrhea Musculoskeletal: Denies: pain Allergies: Coded Allergies: No Known Allergies (Unverified , 10/01/20) Objective Last 24 Hour Vital Signs Date Time Temp Pulse Resp B/P (MAP) Pulse Ox O2 Delivery O2 Flow Rate FiO2 10/05/20 09:00 Nasal Cannula 2.0 10/05/20 08:33 128/65 10/05/20 08:00 97.5 102 18 128/65 (86) 100 10/05/20 04:00 97.0 106 18 126/70 (88) 96 10/05/20 00:00 97.5 90 18 109/81 (90) 97 10/04/20 21:00 Nasal Cannula 2.0 10/04/20 20:00 97.2 100 20 110/62 (78) 95 10/04/20 16:00 97.7 110 20 103/57 (72) 99 10/04/20 12:00 97.0 96 20 129/78 (95) 98 Height (Feet): 5 Height (Inches): 6.00 Weight (Pounds): 160 Current Medications Medications (Trade) Dose Ordered Sig/Nikia Route PRN Reason Start Time Stop Time Status Last Admin Dose Admin Acetaminophen (Tylenol) 650 mg Q4H PRN ORAL fever 10/01/20 20:00 10/31/20 19:59 Albuterol/ Ipratropium (Combivent Respimat) 1 puff Q6H PRN INH Shortness of Breath 10/02/20 12:30 11/01/20 12:29 Benazepril HCl (Lotensin) 40 mg DAILY ORAL 10/03/20 09:00 11/02/20 08:59 10/05/20 08:33 Dexamethasone Sodium Phosphate (Decadron 10mg/ ml Inj) 6 mg DAILY IV 10/02/20 09:00 10/10/20 09:01 10/05/20 08:33 Enoxaparin Sodium (Lovenox) 40 mg DAILY SUBQ 10/02/20 09:00 12/31/20 08:59 Finasteride (Proscar) 5 mg DAILY ORAL 10/03/20 09:00 01/01/21 08:59 10/05/20 08:33 Furosemide (Lasix) 40 mg DAILY ORAL 10/03/20 09:00 11/02/20 08:59 10/05/20 08:33 Pantoprazole (Protonix) 40 mg DAILY ORAL 10/02/20 09:00 11/01/20 08:59 10/05/20 08:33 Sodium Chloride 1,000 ml @ 100 mls/hr Q10H IV 10/01/20 20:00 10/31/20 19:59 10/05/20 03:16 Tbo-Filgrastim (Granix) 300 mcg DAILY SQ 10/05/20 11:00 01/03/21 10:59 Nuzhat Mitchell MD Oct 05, 2020 11:16
[2020-10-05 11:34] LABS: HEMATOCRIT 37.3 % (42.0-52.0); HEMOGLOBIN 12.5 G/DL (14.2-18.0); MEAN CORPUSCULAR VOLUME 92 FL (80-99); PLATELET COUNT 205 K/UL (150-450); RED BLOOD COUNT 4.05 M/UL (4.70-6.10); RED CELL DISTRIBUTION WIDTH 12.4 % (11.6-14.8); WHITE BLOOD COUNT 7.5 K/UL (4.8-10.8)
[2020-10-05 12:00] VITALS: BP 124/62
--- NOTE | 2020-10-05 12:39 | Pulmonology Progress Note ---
Subjective ROS Limited/Unobtainable: Yes Constitutional: Denies: fever, chills Gastrointestinal/Abdominal: Denies: nausea, vomiting, diarrhea Musculoskeletal: Denies: pain Allergies: Coded Allergies: No Known Allergies (Unverified , 10/01/20) All Systems: reviewed and negative except above Subjective care noted confused on oxygen no distress Objective Last 24 Hour Vital Signs Date Time Temp Pulse Resp B/P (MAP) Pulse Ox O2 Delivery O2 Flow Rate FiO2 10/05/20 12:00 96.8 109 18 124/62 (82) 100 10/05/20 09:00 Nasal Cannula 2.0 10/05/20 08:33 128/65 10/05/20 08:00 97.5 102 18 128/65 (86) 100 10/05/20 04:00 97.0 106 18 126/70 (88) 96 10/05/20 00:00 97.5 90 18 109/81 (90) 97 10/04/20 21:00 Nasal Cannula 2.0 10/04/20 20:00 97.2 100 20 110/62 (78) 95 10/04/20 16:00 97.7 110 20 103/57 (72) 99 Intake and Output 10/04/20 10/05/20 19:00 07:00 Intake Total 2100 ml 1900 ml Output Total 1400 ml 900 ml Balance 700 ml 1000 ml Intake Oral 1200 ml 800 ml IV Total 900 ml 1100 ml Output Urine Total 1400 ml 900 ml # Voids 4 # Bowel Movements 1 Objective deferred due to COVID Laboratory Tests 10/05/20 11:15: White Blood Count 7.5, Red Blood Count 4.05L, Hemoglobin 12.5L, Hematocrit 37.3L , Mean Corpuscular Volume 92, Mean Corpuscular Hemoglobin 30.9, Mean Corpuscular Hemoglobin Concent 33.5, Red Cell Distribution Width 12.4, Platelet Count 205, Mean Platelet Volume 6.4L, Neutrophils (%) (Auto) , Lymphocytes (%) (Auto) , Monocytes (%) (Auto) , Eosinophils (%) (Auto) , Basophils (%) (Auto) , Differential Total Cells Counted 100, Neutrophils % (Manual) 88H, Lymphocytes % (Manual) 9L, Monocytes % (Manual) 3, Eosinophils % (Manual) 0, Basophils % (Manual) 0, Band Neutrophils 0, Platelet Estimate Adequate, Platelet Morphology Normal, Red Blood Cell Morphology Normal Current Medications Medications (Trade) Dose Ordered Sig/Nikia Route PRN Reason Start Time Stop Time Status Last Admin Dose Admin Acetaminophen (Tylenol) 650 mg Q4H PRN ORAL fever 10/01/20 20:00 10/31/20 19:59 Albuterol/ Ipratropium (Combivent Respimat) 1 puff Q6H PRN INH Shortness of Breath 10/02/20 12:30 11/01/20 12:29 Benazepril HCl (Lotensin) 40 mg DAILY ORAL 10/03/20 09:00 11/02/20 08:59 10/05/20 08:33 Dexamethasone Sodium Phosphate (Decadron 10mg/ ml Inj) 6 mg DAILY IV 10/02/20 09:00 10/10/20 09:01 10/05/20 08:33 Enoxaparin Sodium (Lovenox) 40 mg DAILY SUBQ 10/02/20 09:00 12/31/20 08:59 Finasteride (Proscar) 5 mg DAILY ORAL 10/03/20 09:00 01/01/21 08:59 10/05/20 08:33 Furosemide (Lasix) 40 mg DAILY ORAL 10/03/20 09:00 11/02/20 08:59 10/05/20 08:33 Pantoprazole (Protonix) 40 mg DAILY ORAL 10/02/20 09:00 11/01/20 08:59 10/05/20 08:33 Sodium Chloride 1,000 ml @ 100 mls/hr Q10H IV 10/01/20 20:00 10/31/20 19:59 10/05/20 03:16 Tbo-Filgrastim (Granix) 300 mcg QHS SQ 10/05/20 21:00 01/03/21 20:59 Assessment/Plan Assessment/Plan IMPRESSION chronic lung changes COVID pneumonia COPD hypoxemia hypothyroid hypertension PLAN respiratory care ID follow up oxygen respiratory treatment DVT prophylaxis home meds PT on Decadron monitor imaging and hope to dc impression, plan, and exam edited and reviewed in detail care discussed with Marv Holguin MD Oct 05, 2020 12:39
--- NOTE | 2020-10-05 13:59 | General Progress Note ---
Subjective ROS Limited/Unobtainable: No Constitutional: Reports: malaise, weakness HEENT: Reports: no symptoms Cardiovascular: Reports: no symptoms Respiratory: Reports: cough, shortness of breath Gastrointestinal/Abdominal: Reports: no symptoms Genitourinary: Reports: no symptoms Neurologic/Psychiatric: Reports: no symptoms Endocrine: Reports: no symptoms Hematologic/Lymphatic: Reports: no symptoms Allergies: Coded Allergies: No Known Allergies (Unverified , 10/01/20) All Systems: reviewed and negative except above Subjective no events. no new complaints. stable sob. no fevers. on 2L. s/p ivermectin. on steroids Objective Last 24 Hour Vital Signs Date Time Temp Pulse Resp B/P (MAP) Pulse Ox O2 Delivery O2 Flow Rate FiO2 10/05/20 12:00 96.8 109 18 124/62 (82) 100 10/05/20 09:00 Nasal Cannula 2.0 10/05/20 08:33 128/65 10/05/20 08:00 97.5 102 18 128/65 (86) 100 10/05/20 04:00 97.0 106 18 126/70 (88) 96 10/05/20 00:00 97.5 90 18 109/81 (90) 97 10/04/20 21:00 Nasal Cannula 2.0 10/04/20 20:00 97.2 100 20 110/62 (78) 95 10/04/20 16:00 97.7 110 20 103/57 (72) 99 Intake and Output 10/04/20 10/05/20 19:00 07:00 Intake Total 2100 ml 1900 ml Output Total 1400 ml 900 ml Balance 700 ml 1000 ml Intake Oral 1200 ml 800 ml IV Total 900 ml 1100 ml Output Urine Total 1400 ml 900 ml # Voids 4 # Bowel Movements 1 Laboratory Tests 10/05/20 11:15: White Blood Count 7.5, Red Blood Count 4.05L, Hemoglobin 12.5L, Hematocrit 37.3L , Mean Corpuscular Volume 92, Mean Corpuscular Hemoglobin 30.9, Mean Corpuscular Hemoglobin Concent 33.5, Red Cell Distribution Width 12.4, Platelet Count 205, Mean Platelet Volume 6.4L, Neutrophils (%) (Auto) , Lymphocytes (%) (Auto) , Monocytes (%) (Auto) , Eosinophils (%) (Auto) , Basophils (%) (Auto) , Differential Total Cells Counted 100, Neutrophils % (Manual) 88H, Lymphocytes % (Manual) 9L, Monocytes % (Manual) 3, Eosinophils % (Manual) 0, Basophils % (Man ual) 0, Band Neutrophils 0, Platelet Estimate Adequate, Platelet Morphology Normal, Red Blood Cell Morphology Normal Height (Feet): 5 Height (Inches): 6.00 Weight (Pounds): 160 Objective deferred due to covid + Assessment/Plan Problem List: (1) Pneumonia ICD Codes: J18.9 - Pneumonia, unspecified organism SNOMED: 289718488 (2) Chronic lung disease ICD Codes: J98.4 - Other disorders of lung SNOMED: 029646790 (3) 2019 novel coronavirus detected ICD Codes: U07.1 - COVID-19 SNOMED: 8994194508189430 Status: stable Assessment/Plan: a/ covid pna copd [facility] htn chf p/ o2 resp care with mdi cont cardiac rx s/p ivermectin steroids ID eval appreciated improving dvt/stress ulcer prophylaxis Jimbo Cho MD Oct 05, 2020 13:59
[2020-10-05 16:00] VITALS: BP 120/63
--- NOTE | 2020-10-05 19:40 | NUR ---
NURSE HAND-OFF: Important Events on Shift:No new event Patient Status: stable Diet: regular Pending Orders: n/a Pending Results/Labs:n/a Pending MD notification:n/a Latest Vital Signs: Temperature 97.0 , Pulse 106 , B/P 120 /63 , Respiratory Rate 18 , O2 SAT 99 , Nasal Cannula, O2 Flow Rate 2.0 . Vital Sign Comment: stable Latest Meneses Fall Score: 35 Fall Risk: Medium Risk Safety Measures: Call light Within Reach, Bed Alarm , Side Rails Side Rails x2, Bed position Low and Locked. Fall Precautions: Patient Fall Education Report given to JATINDER Silva.
--- NOTE | 2020-10-05 19:46 | NUR ---
NURSE NOTES: Pt. received from JATINDER Fernandez. Pt. AAOx4, on 2L NC, breathing even and unlabored, no indications of respiratory distress, no complaints of pain at this time. IV left forearm 22g with 1/2 NS at 100. Bed low and locked, side rails x3 up, bed alarm active, and call light in reach.
[2020-10-05 20:00] VITALS: BP 126/68
[2020-10-06] VITALS: BP 114/82
[2020-10-06 04:00] VITALS: BP 120/76
--- NOTE | 2020-10-06 07:45 | NUR ---
NURSE HAND-OFF: Important Events on Shift:[pt. boni, using urinal and bedside commode independently] Patient Status: stable Diet: regular Pending Orders: lamar Pending Results/Labs:lamar Pending MD notification:lamar Latest Vital Signs: Temperature 98.6 , Pulse 105 , B/P 120 /76 , Respiratory Rate 20 , O2 SAT 98 , Nasal Cannula, O2 Flow Rate 2.0 . Vital Sign Comment: stable Latest Meneses Fall Score: 35 Fall Risk: Medium Risk Safety Measures: Call light Within Reach, Bed Alarm , Side Rails Side Rails x2, Bed position Low and Locked. Fall Precautions: Patient Fall Education Report given to JATINDER Girard.
--- NOTE | 2020-10-06 07:46 | NUR ---
NURSE NOTES: Received patient in bed, awake, alert and oriented x3. Not in acute respiratory distress with oxygen @ 2L/min via NC. Patient denies pain ro discomfort. Breathing is even and unlabored. No wheezing or other abnormal lung sound. IV is intact,no s/s of infiltration. Call light and personnel items within reach. Bed is in lowest position and locked. Will continue plan of care.
[2020-10-06 08:00] VITALS: BP 115/84
--- NOTE | 2020-10-06 08:46 | General Progress Note ---
Subjective ROS Limited/Unobtainable: No Constitutional: Reports: malaise, weakness HEENT: Reports: no symptoms Cardiovascular: Reports: no symptoms Respiratory: Reports: cough Gastrointestinal/Abdominal: Reports: no symptoms Genitourinary: Reports: no symptoms Neurologic/Psychiatric: Reports: no symptoms Endocrine: Reports: no symptoms Hematologic/Lymphatic: Reports: no symptoms Allergies: Coded Allergies: No Known Allergies (Unverified , 10/01/20) All Systems: reviewed and negative except above Subjective no events. no new complaints. stable sob. no fevers. on 2L. s/p ivermectin. on steroids Objective Last 24 Hour Vital Signs Date Time Temp Pulse Resp B/P (MAP) Pulse Ox O2 Delivery O2 Flow Rate FiO2 10/06/20 04:00 98.6 105 20 120/76 (91) 98 10/06/20 00:00 98.6 104 20 114/82 (93) 98 10/05/20 21:00 Nasal Cannula 2.0 10/05/20 20:06 98 Nasal Cannula 2.0 28 10/05/20 20:00 98.9 106 18 126/68 (87) 97 10/05/20 16:00 97.0 106 18 120/63 (82) 99 10/05/20 12:00 96.8 109 18 124/62 (82) 100 10/05/20 09:00 Nasal Cannula 2.0 Intake and Output 10/05/20 10/06/20 19:00 07:00 Intake Total 1700 ml 1100 ml Output Total 2450 ml 600 ml Balance -750 ml 500 ml Intake Oral 900 ml IV Total 800 ml 1100 ml Output Urine Total 2450 ml 600 ml # Voids 2 # Bowel Movements 1 Laboratory Tests 10/05/20 11:15: White Blood Count 7.5, Red Blood Count 4.05L, Hemoglobin 12.5L, Hematocrit 37.3L , Mean Corpuscular Volume 92, Mean Corpuscular Hemoglobin 30.9, Mean Corpuscular Hemoglobin Concent 33.5, Red Cell Distribution Width 12.4, Platelet Count 205, Mean Platelet Volume 6.4L, Neutrophils (%) (Auto) , Lymphocytes (%) (Auto) , Monocytes (%) (Auto) , Eosinophils (%) (Auto) , Basophils (%) (Auto) , Differential Total Cells Counted 100, Neutrophils % (Manual) 88H, Lymphocytes % (Manual) 9L, Monocytes % (Manual) 3, Eosinophils % (Manual) 0, Basophils % (Manual) 0, Band Neutrophils 0, Platelet Estimate Adequate, Platelet Morphology Normal, Red Blood Cell Morphology Normal Height (Feet): 5 Height (Inches): 6.00 Weight (Pounds): 160 Objective deferred due to covid + Assessment/Plan Problem List: (1) Pneumonia ICD Codes: J18.9 - Pneumonia, unspecified organism SNOMED: 214467962 (2) Chronic lung disease ICD Codes: J98.4 - Other disorders of lung SNOMED: 317103050 (3) 2019 novel coronavirus detected ICD Codes: U07.1 - COVID-19 SNOMED: 1014009920349682 Status: stable Assessment/Plan: a/ covid pna copd [facility] htn chf p/ o2 resp care with mdi cont cardiac rx s/p ivermectin steroids ID eval appreciated improving dvt/stress ulcer prophylaxis Jimbo Cho MD Oct 06, 2020 08:46
[2020-10-06] MEDS: Furosemide 40mg tab ORAL SCH (08:49)
[2020-10-06] MEDS: dexAMETHasone 10mg/ml Inj IV SCH (08:50)
[2020-10-06] MEDS: Enoxaparin 40mg Inj SUBQ SCH (08:51)
[2020-10-06 12:00] VITALS: BP_SYST 121; BP_SYST 91; BP_DIAS 48; BP_DIAS 56
[2020-10-06 16:00] VITALS: BP 129/80
--- NOTE | 2020-10-06 19:01 | Pulmonology Progress Note ---
Subjective ROS Limited/Unobtainable: No Constitutional: Denies: fever, chills Gastrointestinal/Abdominal: Denies: nausea, vomiting, diarrhea Musculoskeletal: Denies: pain Allergies: Coded Allergies: No Known Allergies (Unverified , 10/01/20) All Systems: reviewed and negative except above Subjective care noted confused on oxygen no distress Objective Last 24 Hour Vital Signs Date Time Temp Pulse Resp B/P (MAP) Pulse Ox O2 Delivery O2 Flow Rate FiO2 10/06/20 16:00 97.9 76 20 129/80 (96) 94 10/06/20 12:00 97.8 70 20 121/56 (77) 94 10/06/20 09:00 Nasal Cannula 2.0 10/06/20 08:50 115/84 10/06/20 08:00 97.5 62 18 115/84 (94) 93 10/06/20 07:38 95 Nasal Cannula 2.0 28 10/06/20 04:00 98.6 105 20 120/76 (91) 98 10/06/20 00:00 98.6 104 20 114/82 (93) 98 10/05/20 21:00 Nasal Cannula 2.0 10/05/20 20:06 98 Nasal Cannula 2.0 28 10/05/20 20:00 98.9 106 18 126/68 (87) 97 Intake and Output 10/05/20 10/06/20 19:00 07:00 Intake Total 1700 ml 1100 ml Output Total 2450 ml 600 ml Balance -750 ml 500 ml Intake Oral 900 ml IV Total 800 ml 1100 ml Output Urine Total 2450 ml 600 ml # Voids 2 # Bowel Movements 1 Objective deferred due to COVID Current Medications Medications (Trade) Dose Ordered Sig/Nikia Route PRN Reason Start Time Stop Time Status Last Admin Dose Admin Acetaminophen (Tylenol) 650 mg Q4H PRN ORAL fever 10/01/20 20:00 10/31/20 19:59 Albuterol/ Ipratropium (Combivent Respimat) 1 puff Q6H PRN INH Shortness of Breath 10/02/20 12:30 11/01/20 12:29 Benazepril HCl (Lotensin) 40 mg DAILY ORAL 10/03/20 09:00 11/02/20 08:59 10/05/20 08:33 Dexamethasone Sodium Phosphate (Decadron 10mg/ ml Inj) 6 mg DAILY IV 10/02/20 09:00 10/10/20 09:01 10/06/20 08:50 Enoxaparin Sodium (Lovenox) 40 mg DAILY SUBQ 10/02/20 09:00 12/31/20 08:59 10/06/20 08:51 Finasteride (Proscar) 5 mg DAILY ORAL 10/03/20 09:00 01/01/21 08:59 10/06/20 08:49 Furosemide (Lasix) 40 mg DAILY ORAL 10/03/20 09:00 11/02/20 08:59 10/06/20 08:49 Pantoprazole (Protonix) 40 mg DAILY ORAL 10/02/20 09:00 11/01/20 08:59 10/06/20 08:49 Sodium Chloride 1,000 ml @ 100 mls/hr Q10H IV 10/01/20 20:00 10/31/20 19:59 10/06/20 10:47 Assessment/Plan Assessment/Plan IMPRESSION chronic lung changes COVID pneumonia COPD hypoxemia hypothyroid hypertension PLAN respiratory care ID follow up oxygen respiratory treatment DVT prophylaxis home meds PT on Decadron monitor imaging and hope to dc dc fluids impression, plan, and exam edited and reviewed in detail care discussed with Marv Holguin MD Oct 06, 2020 19:01
--- NOTE | 2020-10-06 19:30 | NUR ---
NURSE NOTES: Patient in bed, on nasal cannula @2 LPM O2. IV access on the left forearm g.22. Instructed to use call light for assistance. Bed in lowest and lock engaged. Will continue to monitor.
[2020-10-06 20:00] VITALS: BP 121/80
--- NOTE | 2020-10-06 20:10 | NUR ---
NURSE HAND-OFF: Important Events on Shift: n/a Patient Status: stable Diet: regular Pending Orders: Pending Results/Labs: Pending MD notification: Latest Vital Signs: Temperature 97.9 , Pulse 76 , B/P 129 /80 , Respiratory Rate 20 , O2 SAT 94 , Nasal Cannula, O2 Flow Rate 2.0 . Vital Sign Comment: Latest Meneses Fall Score: 35 Fall Risk: Medium Risk Safety Measures: Call light Within Reach, Bed Alarm , Side Rails Side Rails x2, Bed position Low and Locked. Fall Precautions: Patient Fall Education Report given to Laura and endorsed plan of care.
[2020-10-07] VITALS: BP 123/83
[2020-10-07 04:00] VITALS: BP 126/80
--- NOTE | 2020-10-07 06:40 | Pulmonology Progress Note ---
Subjective ROS Limited/Unobtainable: No Constitutional: Denies: fever, chills Gastrointestinal/Abdominal: Denies: nausea, vomiting, diarrhea Musculoskeletal: Denies: pain Allergies: Coded Allergies: No Known Allergies (Unverified , 10/01/20) All Systems: reviewed and negative except above Subjective care noted confused on oxygen but improved no distress Objective Last 24 Hour Vital Signs Date Time Temp Pulse Resp B/P (MAP) Pulse Ox O2 Delivery O2 Flow Rate FiO2 10/07/20 04:00 96.3 106 18 126/80 (95) 98 10/07/20 00:00 97.0 107 20 123/83 (96) 98 10/06/20 21:00 Nasal Cannula 2.0 10/06/20 20:00 97.0 102 20 121/80 (94) 97 10/06/20 16:00 97.9 76 20 129/80 (96) 94 10/06/20 12:00 97.8 70 20 121/56 (77) 94 10/06/20 09:00 Nasal Cannula 2.0 10/06/20 08:50 115/84 10/06/20 08:00 97.5 62 18 115/84 (94) 93 10/06/20 07:38 95 Nasal Cannula 2.0 28 Intake and Output 10/06/20 10/07/20 19:00 07:00 Intake Total 1400 ml Balance 1400 ml IV Total 800 ml Other 600 ml Objective deferred due to COVID Current Medications Medications (Trade) Dose Ordered Sig/Nikia Route PRN Reason Start Time Stop Time Status Last Admin Dose Admin Acetaminophen (Tylenol) 650 mg Q4H PRN ORAL fever 10/01/20 20:00 10/31/20 19:59 Albuterol/ Ipratropium (Combivent Respimat) 1 puff Q6H PRN INH Shortness of Breath 10/02/20 12:30 11/01/20 12:29 Benazepril HCl (Lotensin) 40 mg DAILY ORAL 10/03/20 09:00 11/02/20 08:59 10/05/20 08:33 Dexamethasone Sodium Phosphate (Decadron 10mg/ ml Inj) 6 mg DAILY IV 10/02/20 09:00 10/10/20 09:01 10/06/20 08:50 Enoxaparin Sodium (Lovenox) 40 mg DAILY SUBQ 10/02/20 09:00 12/31/20 08:59 10/06/20 08:51 Finasteride (Proscar) 5 mg DAILY ORAL 10/03/20 09:00 01/01/21 08:59 10/06/20 08:49 Furosemide (Lasix) 40 mg DAILY ORAL 10/03/20 09:00 11/02/20 08:59 10/06/20 08:49 Pantoprazole (Protonix) 40 mg DAILY ORAL 10/02/20 09:00 11/01/20 08:59 10/06/20 08:49 Assessment/Plan Assessment/Plan IMPRESSION chronic lung changes COVID pneumonia COPD hypoxemia hypothyroid hypertension PLAN respiratory care ID follow up oxygen respiratory treatment DVT prophylaxis home meds PT on Decadron monitor imaging and hope to dc to home with HH recheck BMP on lasix impression, plan, and exam edited and reviewed in detail care discussed with Marv Holguin MD Oct 07, 2020 06:40
--- NOTE | 2020-10-07 07:41 | NUR ---
NURSE HAND-OFF: Important Events on Shift: patient wants to go home today Patient Status: Diet: regular Pending Orders: Pending Results/Labs: Pending MD notification: Latest Vital Signs: Temperature 96.3 , Pulse 106 , B/P 126 /80 , Respiratory Rate 18 , O2 SAT 98 , Nasal Cannula, O2 Flow Rate 2.0 . Vital Sign Comment: Latest Meneses Fall Score: 35 Fall Risk: Medium Risk Safety Measures: Call light Within Reach, Bed Alarm , Side Rails Side Rails x2, Bed position Low and Locked. Fall Precautions: Patient Fall Education Report given to JATINDER Girard.
--- NOTE | 2020-10-07 07:42 | NUR ---
NURSE NOTES: Received patient in bed,awake, alert and oriented x3. Patient is hard of hearing and patient verbalized that his eye site is bad. Fall precaution, bed is in lowest position and locked. Bed alarm is on, call light and personnel items within reach. Rn reminded patient to call nurses if needed. IV is intact, patient is on oxygen 2L/min via NC with O2sat of 97% with non- productive cough, lung sound is clear. Patient denies pain or discomfort. Will continue plan of care.
[2020-10-07 08:00] VITALS: BP 112/62
--- NOTE | 2020-10-07 08:20 | NUR ---
NURSE NOTES: RN monitored patient on room air.O2sat is 86% @rest. RN put the NC back with Oxygen 2L/min. O2sat went up to 97-98%.
--- NOTE | 2020-10-07 10:20 | NUR ---
NURSE NOTES: RN felice the blood and sent the specimen it to lab
[2020-10-07] MEDS: dexAMETHasone 10mg/ml Inj IV SCH (10:27)
[2020-10-07] MEDS: Furosemide 40mg tab ORAL SCH (10:27)
[2020-10-07] MEDS: Enoxaparin 40mg Inj SUBQ SCH (10:29)
[2020-10-07 11:32] LABS: ANION GAP 3 mmol/L (5-15); BLOOD UREA NITROGEN 22 mg/dL (7-18); CALCIUM 8.7 MG/DL (8.5-10.1); CARBON DIOXIDE 36 MMOL/L (21-32); CHLORIDE 101 MMOL/L (98-107); SODIUM 140 MMOL/L (136-145)
[2020-10-07 12:00] VITALS: BP 128/79
--- NOTE | 2020-10-07 13:12 | General Progress Note ---
Subjective ROS Limited/Unobtainable: No Constitutional: Reports: malaise, weakness HEENT: Reports: no symptoms Cardiovascular: Reports: no symptoms Respiratory: Reports: cough, shortness of breath Gastrointestinal/Abdominal: Reports: no symptoms Genitourinary: Reports: no symptoms Neurologic/Psychiatric: Reports: anxiety Endocrine: Reports: no symptoms Hematologic/Lymphatic: Reports: anemia Allergies: Coded Allergies: No Known Allergies (Unverified , 10/01/20) All Systems: reviewed and negative except above Subjective no events. no new complaints. stable sob. no fevers. on 2L. s/p ivermectin. on steroids Objective Last 24 Hour Vital Signs Date Time Temp Pulse Resp B/P (MAP) Pulse Ox O2 Delivery O2 Flow Rate FiO2 10/07/20 09:00 112/62 10/07/20 09:00 Nasal Cannula 2.0 10/07/20 08:00 97.0 104 18 112/62 (79) 98 10/07/20 04:00 96.3 106 18 126/80 (95) 98 10/07/20 00:00 97.0 107 20 123/83 (96) 98 10/06/20 21:00 Nasal Cannula 2.0 10/06/20 20:00 97.0 102 20 121/80 (94) 97 10/06/20 16:00 97.9 76 20 129/80 (96) 94 Intake and Output 10/06/20 10/07/20 19:00 07:00 Intake Total 1400 ml 400 ml Balance 1400 ml 400 ml IV Total 800 ml Other 600 ml 400 ml # Voids 2 Laboratory Tests 10/07/20 11:15: Sodium Level 140, Potassium Level 4.0, Chloride Level 101, Carbon Dioxide Level 36H, Anion Gap 3L, Blood Urea Nitrogen 22H, Creatinine 1.0, Estimat Glomerular Filtration Rate > 60, Glucose Level 112H, Calcium Level 8.7 Height (Feet): 5 Height (Inches): 6.00 Weight (Pounds): 160 Objective deferred due to covid + Assessment/Plan Problem List: (1) Pneumonia ICD Codes: J18.9 - Pneumonia, unspecified organism SNOMED: 798803051 (2) Chronic lung disease ICD Codes: J98.4 - Other disorders of lung SNOMED: 896977455 (3) 2019 novel coronavirus detected ICD Codes: U07.1 - COVID-19 SNOMED: [id number] Status: stable Assessment/Plan: a/ covid pna copd [facility] htn chf p/ o2 resp care with mdi cont cardiac rx s/p ivermectin steroids ID eval appreciated improving dvt/stress ulcer prophylaxis Jimbo Cho MD Oct 07, 2020 13:12
--- NOTE | 2020-10-07 15:20 | NUR ---
NURSE NOTES: RN inserted new IV on right wrist with G22 with good blood return. Secured with tegaderm and tape, removed old IV that was leaking, no s/s of infection.
[2020-10-07 16:00] VITALS: BP 134/90
--- NOTE | 2020-10-07 16:16 | Infectious Diseases Prog Note ---
Assessment/Plan Assessment/Plan A 1. COVID19 pneumonia 2. Hypertension 3. COPD 4. Hypothyroidism P 1. continue Decadron day 6 2. Got ivermectin 1 dose 3. continue isolation Subjective ROS Limited/Unobtainable: Yes Constitutional: Denies: fever Allergies: Coded Allergies: No Known Allergies (Unverified , 10/01/20) Objective Last 24 Hour Vital Signs Date Time Temp Pulse Resp B/P (MAP) Pulse Ox O2 Delivery O2 Flow Rate FiO2 10/07/20 12:00 98.1 107 18 128/79 (95) 98 10/07/20 09:00 112/62 10/07/20 09:00 Nasal Cannula 2.0 10/07/20 08:00 97.0 104 18 112/62 (79) 98 10/07/20 04:00 96.3 106 18 126/80 (95) 98 10/07/20 00:00 97.0 107 20 123/83 (96) 98 10/06/20 21:00 Nasal Cannula 2.0 10/06/20 20:00 97.0 102 20 121/80 (94) 97 Height (Feet): 5 Height (Inches): 6.00 Weight (Pounds): 160 HEENT: mucous membranes moist Respiratory/Chest: other - oxygen by nasal cannula Cardiovascular: tachycardia Abdomen: soft, non tender Extremities: no edema Neurologic/Psychiatric: other - sleeping Laboratory Tests Test 10/07/20 11:15 Sodium Level 140 MMOL/L (136-145) Potassium Level 4.0 MMOL/L (3.5-5.1) Chloride Level 101 MMOL/L (98-107) Carbon Dioxide Level 36 MMOL/L (21-32) H Anion Gap 3 mmol/L (5-15) L Blood Urea Nitrogen 22 mg/dL (7-18) H Creatinine 1.0 MG/DL (0.55-1.30) Estimat Glomerular Filtration Rate > 60 mL/min (>60) Glucose Level 112 MG/DL (74-106) H Calcium Level 8.7 MG/DL (8.5-10.1) Current Medications Medications (Trade) Dose Ordered Sig/Nikia Route PRN Reason Start Time Stop Time Status Last Admin Dose Admin Acetaminophen (Tylenol) 650 mg Q4H PRN ORAL fever 10/01/20 20:00 10/31/20 19:59 Albuterol/ Ipratropium (Combivent Respimat) 1 puff Q6H PRN INH Shortness of Breath 10/02/20 12:30 11/01/20 12:29 Benazepril HCl (Lotensin) 40 mg DAILY ORAL 10/03/20 09:00 11/02/20 08:59 10/05/20 08:33 Dexamethasone Sodium Phosphate (Decadron 10mg/ ml Inj) 6 mg DAILY IV 10/02/20 09:00 10/10/20 09:01 10/07/20 10:27 Enoxaparin Sodium (Lovenox) 40 mg DAILY SUBQ 10/02/20 09:00 12/31/20 08:59 10/07/20 10:29 Finasteride (Proscar) 5 mg DAILY ORAL 10/03/20 09:00 01/01/21 08:59 10/07/20 10:29 Furosemide (Lasix) 40 mg DAILY ORAL 10/03/20 09:00 11/02/20 08:59 10/07/20 10:27 Pantoprazole (Protonix) 40 mg DAILY ORAL 10/02/20 09:00 11/01/20 08:59 10/07/20 10:27 Gaetano Marina MD Oct 07, 2020 16:16
--- NOTE | 2020-10-07 19:30 | NUR ---
NURSE NOTES: Patient in bed, on O2 @ 2LPM via nasal cannula. Call light in reach. Bed in lowest, lock engaged and alarm on. Will continue to monitor.
--- NOTE | 2020-10-07 19:31 | NUR ---
NURSE HAND-OFF: Important Events on Shift: Monitored patient on room air,o2sat was 86%, with O2 2L/min via NC, patient's O2sat was 97% Patient Status: stable Diet: regular Pending Orders: Pending Results/Labs: Pending MD notification: Latest Vital Signs: Temperature 97.3 , Pulse 117 , B/P 134 /90 , Respiratory Rate 19 , O2 SAT 95 , Nasal Cannula, O2 Flow Rate 2.0 . Vital Sign Comment: Latest Meneses Fall Score: 35 Fall Risk: Medium Risk Safety Measures: Call light Within Reach, Bed Alarm , Side Rails Side Rails x2, Bed position Low and Locked. Fall Precautions: Patient Fall Education Report given to Mariano and endorsed plan of care.
[2020-10-07 20:00] VITALS: BP 129/79
[2020-10-08] VITALS: BP 128/76
[2020-10-08 04:00] VITALS: BP 127/70
--- NOTE | 2020-10-08 07:22 | NUR ---
NURSE HAND-OFF: Important Events on Shift: Patient Status: Diet: regular Pending Orders: Pending Results/Labs: Pending MD notification: Latest Vital Signs: Temperature 98.4 , Pulse 97 , B/P 127 /70 , Respiratory Rate 18 , O2 SAT 99 , Nasal Cannula, O2 Flow Rate 2.0 . Vital Sign Comment: Latest Meneses Fall Score: 35 Fall Risk: Medium Risk Safety Measures: Call light Within Reach, Bed Alarm , Side Rails Side Rails x2, Bed position Low and Locked. Fall Precautions: Patient Fall Education Report given to JATINDER Garrido.
--- NOTE | 2020-10-08 07:45 | NUR ---
NURSE NOTES: Patient in bed, on O2 @ 2LPM via nasal cannula. No acute distress noted. No SOB. Denied any pain. IV intact and patent. Call light in reach. Bed in lowest, lock engaged and alarm on. Will continue to monitor.
[2020-10-08 08:00] VITALS: BP 111/68
--- NOTE | 2020-10-08 08:55 | General Progress Note ---
Subjective ROS Limited/Unobtainable: No Constitutional: Reports: malaise, weakness HEENT: Reports: no symptoms Cardiovascular: Reports: no symptoms Respiratory: Reports: cough Gastrointestinal/Abdominal: Reports: no symptoms Genitourinary: Reports: no symptoms Neurologic/Psychiatric: Reports: no symptoms Endocrine: Reports: no symptoms Hematologic/Lymphatic: Reports: no symptoms Allergies: Coded Allergies: No Known Allergies (Unverified , 10/01/20) All Systems: reviewed and negative except above Subjective no events. no new complaints. stable sob. no fevers. on 2L. s/p ivermectin. on steroids Objective Last 24 Hour Vital Signs Date Time Temp Pulse Resp B/P (MAP) Pulse Ox O2 Delivery O2 Flow Rate FiO2 10/08/20 04:00 98.4 97 18 127/70 (89) 99 10/08/20 00:00 97.6 108 19 128/76 (93) 98 10/07/20 21:56 96 Nasal Cannula 2.0 28 10/07/20 21:00 Nasal Cannula 2.0 10/07/20 20:00 98.2 90 18 129/79 (96) 96 10/07/20 16:00 97.3 117 19 134/90 (105) 95 10/07/20 12:00 98.1 107 18 128/79 (95) 98 10/07/20 09:00 112/62 10/07/20 09:00 Nasal Cannula 2.0 Intake and Output 10/07/20 10/08/20 19:00 07:00 Intake Total 650 ml 500 ml Output Total 800 ml Balance -150 ml 500 ml Intake Oral 650 ml 500 ml Output Urine Total 800 ml # Voids 5 3 Laboratory Tests 10/07/20 11:15: Sodium Level 140, Potassium Level 4.0, Chloride Level 101, Carbon Dioxide Level 36H, Anion Gap 3L, Blood Urea Nitrogen 22H, Creatinine 1.0, Estimat Glomerular Filtration Rate > 60, Glucose Level 112H, Calcium Level 8.7 Height (Feet): 5 Height (Inches): 6.00 Weight (Pounds): 160 Objective deferred due to covid + Assessment/Plan Problem List: (1) Pneumonia ICD Codes: J18.9 - Pneumonia, unspecified organism SNOMED: 459498063 (2) Chronic lung disease ICD Codes: J98.4 - Other disorders of lung SNOMED: 718426089 (3) 2019 novel coronavirus detected ICD Codes: U07.1 - COVID-19 SNOMED: [id number] Status: stable Assessment/Plan: a/ covid pna copd [facility] htn chf p/ o2 resp care with mdi cont cardiac rx s/p ivermectin steroids ID eval appreciated improving dvt/stress ulcer prophylaxis Jimbo Cho MD Oct 08, 2020 08:55
[2020-10-08] MEDS: Furosemide 40mg tab ORAL SCH (09:58)
[2020-10-08] MEDS: dexAMETHasone 10mg/ml Inj IV SCH (09:59)
[2020-10-08] MEDS: Enoxaparin 40mg Inj SUBQ SCH (10:00)
[2020-10-08 12:00] VITALS: BP 120/71
--- NOTE | 2020-10-08 12:27 | Infectious Diseases Prog Note ---
Assessment/Plan Assessment/Plan antibiotics : none A 1. COVID 19 pneumonia on 2 liters O2, 97 % saturation s/p ivermectin 2. hypertension 3. COPD 4. hypothyroidism P 1. continue decadron day 7 2. continue isolation Subjective ROS Limited/Unobtainable: Yes Allergies: Coded Allergies: No Known Allergies (Unverified , 10/01/20) Objective Last 24 Hour Vital Signs Date Time Temp Pulse Resp B/P (MAP) Pulse Ox O2 Delivery O2 Flow Rate FiO2 10/08/20 09:59 111/68 10/08/20 07:35 97 Nasal Cannula 2.0 28 10/08/20 04:00 98.4 97 18 127/70 (89) 99 10/08/20 00:00 97.6 108 19 128/76 (93) 98 10/07/20 21:56 96 Nasal Cannula 2.0 28 10/07/20 21:00 Nasal Cannula 2.0 10/07/20 20:00 98.2 90 18 129/79 (96) 96 10/07/20 16:00 97.3 117 19 134/90 (105) 95 Height (Feet): 5 Height (Inches): 6.00 Weight (Pounds): 160 Respiratory/Chest: lungs clear Cardiovascular: normal rate, regular rhythm, no gallop/murmur Abdomen: soft, non tender, other - GT Extremities: no edema Current Medications Medications (Trade) Dose Ordered Sig/Nikia Route PRN Reason Start Time Stop Time Status Last Admin Dose Admin Acetaminophen (Tylenol) 650 mg Q4H PRN ORAL fever 10/01/20 20:00 10/31/20 19:59 Albuterol/ Ipratropium (Combivent Respimat) 1 puff Q6H PRN INH Shortness of Breath 10/02/20 12:30 11/01/20 12:29 Benazepril HCl (Lotensin) 40 mg DAILY ORAL 10/03/20 09:00 11/02/20 08:59 10/08/20 09:59 Dexamethasone Sodium Phosphate (Decadron 10mg/ ml Inj) 6 mg DAILY IV 10/02/20 09:00 10/10/20 09:01 10/08/20 09:59 Enoxaparin Sodium (Lovenox) 40 mg DAILY SUBQ 10/02/20 09:00 12/31/20 08:59 10/08/20 10:00 Finasteride (Proscar) 5 mg DAILY ORAL 10/03/20 09:00 01/01/21 08:59 10/08/20 09:58 Furosemide (Lasix) 40 mg DAILY ORAL 10/03/20 09:00 11/02/20 08:59 10/08/20 09:58 Pantoprazole (Protonix) 40 mg DAILY ORAL 10/02/20 09:00 11/01/20 08:59 10/08/20 09:57 Nuzhat Mitchell MD Oct 08, 2020 12:27
[2020-10-08 16:00] VITALS: BP 123/80
--- NOTE | 2020-10-08 16:14 | NUR ---
*-*DISCHARGE PLAN*-* PATIENT HAS BEEN ACCEPTED WITH: [facility] P: [phone] S/W [facility] WILL SERVICE PATIENT UPON DISCHARGE.
--- NOTE | 2020-10-08 19:02 | Pulmonology Progress Note ---
Subjective ROS Limited/Unobtainable: Yes Constitutional: Denies: fever Gastrointestinal/Abdominal: Denies: nausea, vomiting, diarrhea Musculoskeletal: Denies: pain Allergies: Coded Allergies: No Known Allergies (Unverified , 10/01/20) All Systems: reviewed and negative except above Objective Last 24 Hour Vital Signs Date Time Temp Pulse Resp B/P (MAP) Pulse Ox O2 Delivery O2 Flow Rate FiO2 10/08/20 16:00 98.1 88 16 123/80 (94) 97 10/08/20 12:00 97.5 88 16 120/71 (87) 98 10/08/20 09:59 111/68 10/08/20 09:00 Nasal Cannula 2.0 10/08/20 08:00 96.4 87 16 111/68 (82) 99 10/08/20 07:35 97 Nasal Cannula 2.0 28 10/08/20 04:00 98.4 97 18 127/70 (89) 99 10/08/20 00:00 97.6 108 19 128/76 (93) 98 10/07/20 21:56 96 Nasal Cannula 2.0 28 10/07/20 21:00 Nasal Cannula 2.0 10/07/20 20:00 98.2 90 18 129/79 (96) 96 Intake and Output 10/07/20 10/08/20 19:00 07:00 Intake Total 650 ml 500 ml Output Total 800 ml Balance -150 ml 500 ml Intake Oral 650 ml 500 ml Output Urine Total 800 ml # Voids 5 3 Current Medications Medications (Trade) Dose Ordered Sig/Nikia Route PRN Reason Start Time Stop Time Status Last Admin Dose Admin Acetaminophen (Tylenol) 650 mg Q4H PRN ORAL fever 10/01/20 20:00 10/31/20 19:59 Albuterol/ Ipratropium (Combivent Respimat) 1 puff Q6H PRN INH Shortness of Breath 10/02/20 12:30 11/01/20 12:29 Benazepril HCl (Lotensin) 40 mg DAILY ORAL 10/03/20 09:00 11/02/20 08:59 10/08/20 09:59 Dexamethasone Sodium Phosphate (Decadron 10mg/ ml Inj) 6 mg DAILY IV 10/02/20 09:00 10/10/20 09:01 10/08/20 09:59 Enoxaparin Sodium (Lovenox) 40 mg DAILY SUBQ 10/02/20 09:00 12/31/20 08:59 10/08/20 10:00 Finasteride (Proscar) 5 mg DAILY ORAL 10/03/20 09:00 01/01/21 08:59 10/08/20 09:58 Furosemide (Lasix) 40 mg DAILY ORAL 10/03/20 09:00 11/02/20 08:59 10/08/20 09:58 Pantoprazole (Protonix) 40 mg DAILY ORAL 10/02/20 09:00 11/01/20 08:59 10/08/20 09:57 Assessment/Plan Assessment/Plan Pulmonary Progress Note Subjective ROS Limited/Unobtainable: No Constitutional: Denies: fever, chills Gastrointestinal/Abdominal: Denies: nausea, vomiting, diarrhea Musculoskeletal: Denies: pain Allergies: Coded Allergies: No Known Allergies (Unverified , 10/01/20) All Systems: reviewed and negative except above Subjective care noted confused on oxygen but improved no distress Objective Vital Signs noted Objective deferred due to COVID 19 Assessment/Plan Assessment/Plan IMPRESSION chronic lung changes COVID pneumonia COPD hypoxemia hypothyroid hypertension PLAN respiratory care ID follow up oxygen respiratory treatment DVT prophylaxis home meds PT on Decadron monitor imaging and hope to dc to home with HH recheck BMP on lasix impression, plan, and exam edited and reviewed in detail care discussed with Cesar Fatima MD Oct 08, 2020 19:02
--- NOTE | 2020-10-08 19:49 | NUR ---
NURSE HAND-OFF: Important Events on Shift:[] Patient Status: [stable] Diet: [reg] Pending Orders: [] Pending Results/Labs:[] Pending MD notification:[] Latest Vital Signs: Temperature 98.1 , Pulse 88 , B/P 123 /80 , Respiratory Rate 16 , O2 SAT 97 , Nasal Cannula, O2 Flow Rate 2.0 . Vital Sign Comment: [stable] Latest Meneses Fall Score: 35 Fall Risk: Medium Risk Safety Measures: Call light Within Reach, Bed Alarm , Side Rails Side Rails x2, Bed position Low and Locked. Fall Precautions: Patient Fall Education Report given to [JATINDER Zavala].
--- NOTE | 2020-10-08 19:50 | NUR ---
NURSE NOTES: Received patient in bed. A&OX3. NC 2L on, no s/s of respiratory distress noted. IV site patent and intact. Bed in lowest position. Call light within reach. Will continue to monitor.
[2020-10-08 20:00] VITALS: BP 122/73
[2020-10-09] VITALS: BP 119/82
[2020-10-09 04:00] VITALS: BP 133/79
--- NOTE | 2020-10-09 07:46 | NUR ---
NURSE HAND-OFF: Important Events on Shift: Patient Status: Diet: regular Pending Orders: Home Health, CM f/u home oxygen Pending Results/Labs: Pending MD notification: Latest Vital Signs: Temperature 98.6 , Pulse 109 , B/P 133 /79 , Respiratory Rate 20 , O2 SAT 98 , Nasal Cannula, O2 Flow Rate 2.0 . Vital Sign Comment: Latest Meneses Fall Score: 35 Fall Risk: Medium Risk Safety Measures: Call light Within Reach, Bed Alarm Zone 1, Side Rails Side Rails x2, Bed position Low and Locked. Fall Precautions: Patient Fall Education Report given to Myrna TOBIAS.
[2020-10-09 08:00] VITALS: BP 126/83
[2020-10-09] MEDS: dexAMETHasone 10mg/ml Inj IV SCH (09:49)
[2020-10-09] MEDS: Furosemide 40mg tab ORAL SCH (09:49)
[2020-10-09] MEDS: Enoxaparin 40mg Inj SUBQ SCH (09:50)
[2020-10-09] MEDS ORDERED: DECADRON10 MG/ML IV (09:55)
[2020-10-09] MEDS ORDERED: XARELTO10 MG ORAL (09:55)
--- NOTE | 2020-10-09 10:20 | NUR ---
NURSE NOTES: Clarified with Dr. Cho that patient will go home with prescription for ORAL Decadron per Rx in chart, not IV per med reconciliation. Nursing unable to edit medication reconciliation, will educate patient that Decadron is ORAL and not IV and provide prescription per Dr. Cho.
--- NOTE | 2020-10-09 10:42 | NUR ---
NURSE NOTES: Called and notified patient's son/caregiver Shane that patient has discharge order. Patient's son stated he is unable to care for the patient at home at this time. Per yosvany Barrow to discharge patient to SNF, order entered. clinical nutrition manager Yulia notified.
--- NOTE | 2020-10-09 10:46 | NUR ---
NURSE NOTES: Patient's son Shane notified of d/c plan to [facility] [place]. Family is in agreement with plan.
--- NOTE | 2020-10-09 11:15 | Discharge Summary ---
DATE OF ADMISSION: 10/01/2020 DATE OF DISCHARGE: 10/09/2020 ADMISSION DIAGNOSES: 1. COVID-19 pneumonia. 2. COPD. 3. Hypertension. DISCHARGE DIAGNOSES: 1. COVID-19 pneumonia. 2. COPD. 3. Hypertension. HOSPITAL COURSE: The patient was admitted with complaints of shortness of breath secondary to COVID-19 pneumonia. He was admitted. He received remdesivir and Decadron. He had stable clinical course. Upon discharge, he was stable. He will be discharged to complete two additional days of Decadron. for DVT prophylaxis. He already has home oxygen. He has been asked to follow up with his PMD in one week. DISCHARGE MEDICATIONS: Please see discharge medication list for discharge medications. DIET: Cardiac diet. ACTIVITIES: Ad-elliot. Jimbo Cho M.D. DR: THERESA JOB#: [id number] CC:
[2020-10-09 12:00] VITALS: BP 111/71
--- NOTE | 2020-10-09 12:44 | NUR ---
CHIEF CHEMIST NOTE CALL MADE TO PATIENTS PANKAJ COPE AT [phone] IN RE TO DC PLAN TO [facility]. PANKAJ IN AGREEMENT WITH PLACEMENT. INFO FOR [facility] PROVIDED TO ANDREW. THANKFUL FOR THE ASSISTANCE AND INFO.
--- NOTE | 2020-10-09 13:01 | NUR ---
*-*DISCHARGE PLANNED*-* PATIENT HAS BEEN ACCEPTED AND WILL BE DISCHARGED TO: [facility] P:[phone] FOR NURSE TO NURSE REPORT ROOM# 12.[facility] FOR [facility]:30PM MARTINEZ [id number]
--- NOTE | 2020-10-09 13:06 | Infectious Diseases Prog Note ---
Assessment/Plan Assessment/Plan A 1. COVID19 pneumonia 2. Hypertension 3. COPD 4. Hypothyroidism P 1. continue Decadron day 8 2. Got ivermectin 1 dose 3. continue isolation Subjective ROS Limited/Unobtainable: Yes Constitutional: Denies: fever Allergies: Coded Allergies: No Known Allergies (Unverified , 10/01/20) Objective Last 24 Hour Vital Signs Date Time Temp Pulse Resp B/P (MAP) Pulse Ox O2 Delivery O2 Flow Rate FiO2 10/09/20 09:49 126/83 10/09/20 08:00 100 20 126/83 (97) 100 10/09/20 04:00 98.6 109 20 133/79 (97) 98 10/09/20 00:00 97.1 106 19 119/82 (94) 96 10/08/20 21:00 Nasal Cannula 2.0 10/08/20 20:50 95 Nasal Cannula 2.0 28 10/08/20 20:00 97.2 103 20 122/73 (89) 99 10/08/20 16:00 98.1 88 16 123/80 (94) 97 Height (Feet): 5 Height (Inches): 6.00 Weight (Pounds): 160 General Appearance: no acute distress HEENT: mucous membranes moist Respiratory/Chest: other - oxygen bynasal cannula Cardiovascular: tachycardia Abdomen: soft, non tender Neurologic/Psychiatric: other - sleeping Current Medications Medications (Trade) Dose Ordered Sig/Nikia Route PRN Reason Start Time Stop Time Status Last Admin Dose Admin Acetaminophen (Tylenol) 650 mg Q4H PRN ORAL fever 10/01/20 20:00 10/31/20 19:59 Albuterol/ Ipratropium (Combivent Respimat) 1 puff Q6H PRN INH Shortness of Breath 10/02/20 12:30 11/01/20 12:29 Benazepril HCl (Lotensin) 40 mg DAILY ORAL 10/03/20 09:00 11/02/20 08:59 10/09/20 09:49 Dexamethasone Sodium Phosphate (Decadron 10mg/ ml Inj) 6 mg DAILY IV 10/02/20 09:00 10/10/20 09:01 10/09/20 09:49 Enoxaparin Sodium (Lovenox) 40 mg DAILY SUBQ 10/02/20 09:00 12/31/20 08:59 10/09/20 09:50 Finasteride (Proscar) 5 mg DAILY ORAL 10/03/20 09:00 01/01/21 08:59 10/09/20 09:49 Furosemide (Lasix) 40 mg DAILY ORAL 10/03/20 09:00 11/02/20 08:59 10/09/20 09:49 Pantoprazole (Protonix) 40 mg DAILY ORAL 10/02/20 09:00 11/01/20 08:59 10/09/20 09:48 Gaetano Marina MD Oct 09, 2020 13:06
--- NOTE | 2020-10-09 15:10 | NUR ---
NURSE NOTES: Called and gave report to Elaine at [facility].
--- NOTE | 2020-10-09 15:37 | NUR ---
NURSE NOTES: Patient's son Shane informed of pending transfer to [facility] [place].
[2020-10-09 16:00] VITALS: BP 123/84
--- NOTE | 2020-10-09 17:35 | NUR ---
NURSE NOTES: Patient discharged to [facility]. All belonging sent with patient. Patient's medications from pharmacy given to EMS crew, endorsed to give medication to nurse at SNF, Rx from Dr. Cho in packet. Report given to [facility]. IV removed intact. Patient transported off unit via EMS gurney.
== END 2020-10-09 17:35 | DRG 177 ==
LOC: EMR 16:08 → 4E 16:18 → EDBEDREQ 10-02 05:34 → EDBEDREQSVC 10-02 05:34 → EDBEDREQ 10-02 06:50
DX: U07.1 COVID-19 (principal); J12.89 Other viral pneumonia; J44.0 Chronic obstructive pulmonary disease with (acute) lower respiratory infection; I11.0 Hypertensive heart disease with heart failure; I50.9 Heart failure, unspecified; E03.9 Hypothyroidism, unspecified; R09.02 Hypoxemia
CPT/HCPCS: 36415; 71045; 80048; 80053; 81003; 82550; 82553; 82728; 83605; 83615; 83690; 83880; 84484; 85007; 85025; 85379; 85610; 85730; 86140; 87040; 93005; 96361; 96365; 96367; 96375; 99285; J7030; U0002